=== PATIENT | female | born 1985 | race Caucasian/White ===

== ENCOUNTER 2017-08-16 07:10 | Day surgery (SDC) | payer OTHER ==
[2017-08-09 12:47] VITALS: BMI 25.7
[~2017-08-16 07:10] MED LIST: LACTATED RINGERS 1,000 ML IV SCH; LIDOCAINE 1% 20 ML VIAL (10MG/ML) FOR IV START INTRADERMA PRN
[2017-08-16 07:27] VITALS: RESP 16; TEMP 97.8
[2017-08-16] MEDS ORDERED: LACTATED RINGERS 1,000 ML IV ONE (07:27)
[2017-08-16] MEDS ORDERED: LIDOCAINE 1% INJ 10MG/ML (20 ML MDV) ONE (07:33)
[2017-08-16] MEDS ORDERED: fentaNYL (PF) 50 MCG/ML 2 ML AMP ONE (07:33)
[2017-08-16] MEDS ORDERED: PROPOFOL 10 MG/ML 20 ML VIAL IV ONE (07:33)
--- NOTE | 2017-08-16 07:47 | P.OP ---
Date of Procedure: 08/16/17 Preoperative Diagnosis: Epigastric and right subcostal pain Ultrasound shows no gallstones CCK HIDA ejection fraction of 86% Postoperative Diagnosis: Same Procedure(s) Performed: Esophagogastroduodenoscopy with biopsy Implants: NA Anesthesia: MAC Surgeon: Priya José Pathology: other Condition: stable Disposition: PACU Indications for Procedure: 31 years old female presents with epigastric and right upper quadrant pain. Ultrasound and CCK HIDA did not show gallstones or biliary dyskinesia. Informed consent obtained and patient elected to undergo EGD with possible biopsy. Operative Findings: Normal EGD GE junction located at 40 cm from the incisors Description of Procedure: A timeout was performed to verify the correct patient and correct procedure. Patient was on continuous vitals and pulse ox monitoring throughout the procedure. She was placed in lateral decubitus position and an oral bite block was inserted. A well-lubricated Olympus upper endoscope was passed orally. The esophagus was intubated without difficulty. The vocal cords were visualised and protected at all times. The endoscope was passed beyond the pylorus into the first and second portion of the duodenum. No abnormality was noted in the duodenum mucosa. Two random biopsies were taken from the gastric antrum using cold biopsy forceps. The scope was then retroflexed. No hiatal hernia No mass, active ulcer or bleeding stigmata noted within the gastric lumen. The GE junction is measured at 40 cm from the incisors . No evidence of reflux esophagitis. Bx taken from GE junction using cold biopsy forceps. The endoscope was gradually withdrawn. No abnormality identified in the esophagus. Patient tolerated the procedure well and was taken to post anesthesia care unit in stable condition. Final Pathologic Diagnosis A. GASTRIC ANTRUM, BIOPSY: MILD CHRONIC GASTRITIS. IMMUNOPEROXIDASE STAIN NEGATIVE FOR HELICOBACTER PYLORI ORGANISMS (CONTROLS APPROPRIATE). B. GASTROESOPHAGEAL JUNCTION, BIOPSY: MATURE SQUAMOGLANDULAR MUCOSA SHOWING CHRONIC ESOPHAGITIS WITH SCATTERED INTRAMUCOSAL EOSINOPHILS AND CHRONIC INFLAMMATION OF THE GLANDULAR COMPONENT. NEGATIVE FOR INTESTINAL METAPLASIA
[2017-08-16 08:20] VITALS: BP 104/71; PULSE 59
== END 2017-08-16 08:35 | disposition home or self-care (01) ==
LOC: ORWHC2ENDO 07:10
PROVIDERS: ATTEND Surgery
DX: K29.50 Unspecified chronic gastritis without bleeding (principal); K20.0 Eosinophilic esophagitis; J45.909 Unspecified asthma, uncomplicated; F17.200 Nicotine dependence, unspecified, uncomplicated; Z88.8 Allergy status to other drugs, medicaments and biological substances; Z97.5 Presence of (intrauterine) contraceptive device; Z83.3 Family history of diabetes mellitus; Z82.49 Family history of ischemic heart disease and other diseases of the circulatory system
CPT/HCPCS: 43239; 81025; J2001; J3010; J2704; 88305; 88342

== ENCOUNTER → 2021-06-06 | Outpatient (CLI) | payer MEDICAID | END | disposition home or self-care (01) | LOC: LABWHC1 14:45 | PROVIDERS: ATTEND Family Medicine | DX: Z20.822 Contact with and (suspected) exposure to COVID-19 (principal) | CPT/HCPCS: 87635 ==

== ENCOUNTER → 2021-06-07 | Outpatient (CLI) | payer MEDICAID | END | disposition home or self-care (01) | LOC: LABWHC1 14:45 | PROVIDERS: ATTEND Emergency Medicine | DX: Z03.818 Encounter for observation for suspected exposure to other biological agents ruled out (principal); Z20.822 Contact with and (suspected) exposure to COVID-19 | CPT/HCPCS: 87635; C9803 ==

== ENCOUNTER 2021-09-14 10:48 | Day surgery (SDC) | payer MEDICAID ==
[2021-09-12 14:52] VITALS: BMI 29.1
--- NOTE | 2021-09-14 09:23 | P.HPOB ---
History of Present Illness H&P Date: 09/14/21 Chief Complaint: family planning 35 year old presents for laparoscopic tubal ligation and removal of IUD. Review of Systems All systems: negative Constitutional: Denies chills, Denies fever Eyes: denies blurred vision, denies pain Ears, nose, mouth and throat: Denies headache, Denies sore throat Cardiovascular: Denies chest pain, Denies shortness of breath Respiratory: Denies cough Gastrointestinal: Denies abdominal pain, Denies diarrhea, Denies nausea, Denies vomiting Genitourinary: Denies dysuria, Denies hematuria Musculoskeletal: Denies myalgias Integumentary: Denies pruritus, Denies rash Neurological: Denies numbness, Denies weakness Psychiatric: Denies anxiety, Denies depression Endocrine: Denies fatigue, Denies weight change Past Medical History Past Medical History: Asthma Additional Past Medical History / Comment(s): HX GALLBLADDER ISSUES, SEASONAL ALLERGIES, PVC's, "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 Past Psychological History: Anxiety Smoking Status: Former smoker Past Alcohol Use History: None Reported Additional Past Alcohol Use History / Comment(s): SMOKED 1/4 PPD FOR APPROX 9 YRS, QUIT 5 YRS AGO. Past Drug Use History: None Reported - Past Family History Father Family Medical History: Deep Vein Thrombosis (DVT) Medications and Allergies Home Medications Medication Instructions Recorded Confirmed Type ALPRAZolam [Xanax] 0.5 mg PO QAM 09/12/21 09/12/21 History Cetirizine HCl [Zyrtec] 10 mg PO QAM 09/12/21 09/12/21 History Digoxin [Lanoxin] 125 mcg PO QAM 09/12/21 09/12/21 History Flovent (Unknown Dose) 2 puff INHALATION BID 09/12/21 09/12/21 History Ibuprofen [Motrin] 800 mg PO Q8H PRN 09/12/21 09/12/21 History Montelukast Sodium [Singulair] 10 mg PO HS 09/12/21 09/12/21 History Allergies Allergy/AdvReac Type Severity Reaction Status Date / Time bupropion [From Wellbutrin] Allergy Anaphylaxis Verified 09/12/21 14:41 carrot Allergy Anaphylaxis Verified 09/12/21 14:41 metoclopramide [From Reglan] Allergy Rash/Hives Verified 09/12/21 14:41 Exam Osteopathic Statement: *. No significant issues noted on an osteopathic structural exam other than those noted in the History and Physical/Consult. HEart: RRR Lungs: CTAB Abdomen: soft, nontender Extremeties: neg delmy's Assessment and Plan (1) Family planning Status: Acute Code(s): Z30.09 - ENCOUNTER FOR OTH GENERAL CNSL AND ADVICE ON CONTRACEPTION SNOMED Code(s): 108732004 (2) IUD (intrauterine device) in place Status: Acute Code(s): Z97.5 - PRESENCE OF (INTRAUTERINE) CONTRACEPTIVE DEVICE SNOMED Code(s): 119400123 Plan: 1. laparoscopic tubal ligation and removal of IUD
[~2021-09-14 10:48] MED LIST changes: +DEXAMETHASONE SOD PHOSPHATE 4 MG/ML 1 ML VIAL IV ONE; +LIDOCAINE 1% (10MG/ML) FOR IV START INTRADERMA PRN; -LIDOCAINE 1% 20 ML VIAL (10MG/ML) FOR IV START INTRADERMA PRN; +MIDAZOLAM 2 MG/2 ML VIAL IV PRN; +ONDANSETRON 4 MG/2 ML VIAL IVP ONE; +Pre Op ABX Message 1 EACH MISC MISCELLANE ONE
[2021-09-14] MEDS ORDERED: SUCCINYLCHOLINE CHLORIDE 100 MG/5 ML SYR IV ONE (12:10)
[2021-09-14] MEDS ORDERED: .fentaNYL (PF) 50 MCG/ML 2 ML AMP ONE (12:10)
[2021-09-14] MEDS ORDERED: ROCURONIUM 10 MG/ML (5 ML VIAL) IV ONE (12:10)
[2021-09-14] MEDS ORDERED: PROPOFOL 10 MG/ML 20 ML VIAL IV ONE (12:10)
[2021-09-14] MEDS ORDERED: GLYCOPYRROLATE 0.2 MG/ML 2 ML VIAL ONE (12:10)
[2021-09-14] MEDS ORDERED: NEOSTIGMINE 1 MG/ML 10 ML VIAL ONE (12:10)
[2021-09-14] MEDS ORDERED: BUPIVACAINE (PF) 0.25% 30 ML VIAL SQ ONE ×2 (12:37)
--- NOTE | 2021-09-14 12:56 | P.OP ---
Date of Procedure: 09/14/21 Preoperative Diagnosis: 1. Family planning 2. IUD in place Postoperative Diagnosis: 1. Family planning 2. IUD in place Procedure(s) Performed: Laparoscopic tubal ligation and removal of IUD Anesthesia: KRISTI Surgeon: Elida Jessica Estimated Blood Loss (ml): 5 IV fluids (ml): 200 Urine output (ml): 45 Pathology: none sent Condition: stable Disposition: PACU Operative Findings: Normal uterus, tubes, ovaries. There was some scar tissue from fallopian tubes around both ovaries. Description of Procedure: Patient was taken to the operating room where general anesthesia was obtained without difficulty. She was prepped and draped in normal sterile fashion in the dorsal lithotomy position, legs placed in the Arvind stirrups. Bladder drained of all urine. Cullen speculum placed in the vagina and the anterior lip the cervix was grasped with single-tooth tenaculum. The IUD strings were grasped with a ring forcep and IUD was easily removed. The uterus is sounded to 9 cm and the kroner manipulator was placed. Attention was then turned to the abdomen and gloves were changed. A 10 mm infraumbilical incision was made the scalpel and 10 mm optical trocar was placed under direct visualization. A 5 mm suprapubic Incision was made and a 5 mm optical trocar was placed under direct visualization. Survey of the pelvis revealed normal uterus tubes and ovaries. The left fallopian tube was grasped with a Kleppinger and fulgurated 2-3 cm on this side in the ampullar portion. The right fallopian tube was grasped with a Kleppinger and fulgurated 2-3 cm in the ampullar portion. All instruments were then removed from the abdomen and vagina. The 10 mm infraumbilical incision was closed with 0 Vicryl and the fascial layer and then 4-0 Vicryl in a subcuticular fashion. The 5 mm incision was closed with 4-0 Vicryl in a subcuticular fashion. Patient tolerated procedure well, sponge and instrument counts correct 2 and she was taken to recovery room in stable condition.
[2021-09-14 13:03] VITALS: TEMP 97
[2021-09-14] MEDS: HYDROmorphone 0.5 MG/0.5 ML SYRINGE IVP PRN ×2 (13:16→13:34)
[2021-09-14] MEDS ORDERED: ONDANSETRON 4 MG/2 ML VIAL ONE (14:21)
[2021-09-14 14:23] VITALS: RESP 16
[2021-09-14 15:11] VITALS: BP 97/55; PULSE 47
== END 2021-09-14 16:03 | disposition home or self-care (01) ==
LOC: OR 10:48
PROVIDERS: ATTEND Obstetrics & Gynecology
DX: Z30.2 Encounter for sterilization (principal); J45.909 Unspecified asthma, uncomplicated; Z30.432 Encounter for removal of intrauterine contraceptive device; I49.3 Ventricular premature depolarization; Z87.891 Personal history of nicotine dependence; F41.9 Anxiety disorder, unspecified; Z82.49 Family history of ischemic heart disease and other diseases of the circulatory system; Z79.899 Other long term (current) drug therapy; Z88.8 Allergy status to other drugs, medicaments and biological substances; Z91.018 Allergy to other foods
CPT/HCPCS: 81025; 58670; J2250; J1100; J2710; J2405; J3010; J0330; J2704; J1170

== ENCOUNTER → 2021-10-23 | Outpatient (CLI) | payer MEDICAID ==
--- NOTE | 2021-10-24 07:49 | CT ---
EXAMINATION TYPE: CT chest wo con DATE OF EXAM: 10/23/2021 COMPARISON: None HISTORY: persistant pneumonia CT DLP: 235.[address] of the chest was performed with lung and mediastinal window settings submitted. The la ck of contrast limits evaluation of the vascular, mediastinal and parenchymal structures including th e upper abdomen. LUNGS: The lungs are clear and free of infiltrate. No atelectasis. No pulmonary nodule or mass is de tected. No pleural effusion. No CT evidence of interstitial lung disease. MEDIASTINUM/JACKIE: Thoracic aorta is of normal caliber with limited evaluation given lack of contrast . The heart is not enlarged. No evidence for mediastinal mass. No lymph nodes greater than 1cm. UPPER ABDOMEN: No significant abnormality is seen. OTHER: No significant other abnormality. IMPRESSION: 1. No significant abnormality seen.
== END | disposition home or self-care (01) ==
LOC: RADCTMAIN 18:01
PROVIDERS: ATTEND Internal Medicine Pulmonary Disease
DX: J45.50 Severe persistent asthma, uncomplicated (principal)
CPT/HCPCS: 71250

== ENCOUNTER → 2022-05-23 | Outpatient (CLI) | payer OTHER ==
--- NOTE | 2022-05-24 09:34 | MM ---
Reason for Exam: Screening (asymptomatic). Patient History: Menarche at age 14. First Full-Term at age 21. Premenopausal. Hormonal Contraceptives, from age 18 until age 35. Maternal grandmother had breast cancer, age 38. Maternal grandmother had ovarian cancer, age 40. Maternal aunt had breast cancer, age 40. Cousin had breast cancer, age 42. Maternal aunt had breast cancer, age 40. Cousin had breast cancer, age 45. Maternal aunt had breast cancer, age 38. Maternal aunt had breast cancer, age 37. Cousin had breast cancer, age 44. Last menstrual period: 05/12/2022 Risk Values: Mackenzie 5 year model risk: 0.3%. NCI Lifetime model risk: 9.2%. Tissue Density: The breast tissue is heterogeneously dense. This may lower the sensitivity of mammography. Findings: Analyzed By CAD. There is a single benign-appearing round calcification in the right breast upper outer quadrant. There is no suspicious group of microcalcifications or new suspicious mass in either breast. Overall Assessment: Benign, BI-RAD 2 Management: Screening Mammogram of both breasts at age 41. A clinical breast exam by your physician is recommended on an annual basis and results should be correlated with mammographic findings. Electronically signed and approved by: Don Cordon M.D.
== END | disposition home or self-care (01) ==
LOC: RADMAMWWP 15:50
PROVIDERS: ATTEND Obstetrics & Gynecology
DX: Z12.31 Encounter for screening mammogram for malignant neoplasm of breast (principal); Z80.3 Family history of malignant neoplasm of breast
CPT/HCPCS: 77063; 77067

== ENCOUNTER → 2024-05-15 | Outpatient (CLI) | payer BC ==
--- NOTE | 2024-06-08 15:24 | MR ---
Site ID synapse default Patient Edie Bae E ID [id number] Age/Gender: 38Y, F Order # N/A Procedure MR lumbar wo Date 05/15/2024 5:55:26 PM EXAMINATION TYPE: MR lumbar spine wo con DATE OF EXAM: 05/22/2024 COMPARISON: None HISTORY: Left foot and lower back pain TECHNIQUE: Multiplanar, multisequence images of the lumbar spine were acquired without IV contrast. FINDINGS: The lumbar vertebral bodies do have preserved heights and alignment. No significant disc desiccation. The conus medullaris and the distal spinal cord do appear unremarkable with regards to their signal intensity and morphology. L1-L2: No significant disc pathology is identified. The spinal canal and neural foramen are patent. L2-L3: No significant disc pathology is identified. The spinal canal and neural foramen are patent. L3-L4: No significant disc pathology is identified. The spinal canal and neural foramen are patent. L4-L5: No significant disc pathology is identified. The spinal canal and neural foramen are patent L5-S1: The intervertebral disc appears round on its contour posteriorly without significant mass eff ect upon the thecal sac. The neural canals remain patent. Other significant findings: None. IMPRESSION: Unremarkable MRI lumbar spine.
== END | disposition home or self-care (01) ==
LOC: RADMRIMAIN 18:45
PROVIDERS: ATTEND Physical Medicine & Rehabilitation Brain Injury Medicine
DX: M54.16 Radiculopathy, lumbar region (principal)
CPT/HCPCS: 72148

== ENCOUNTER → 2024-06-23 | Outpatient (CLI) | payer BC ==
--- NOTE | 2024-06-23 16:25 | XR ---
EXAMINATION TYPE: XR cervical spine comp DATE OF EXAM: 06/23/2024 CLINICAL HISTORY: pain COMPARISON: NONE TECHNIQUE: Frontal, lateral, oblique, swimmers, and open mouth view of the cervical spine are obtaine d. FINDINGS: The cervical spine is visualized in its entirety from C1 thru the top of T1 level. It is s atisfactory in alignment without evidence of acute fracture or dislocation. The pre-vertebral soft t issue appears within normal limits. Disc spaces are well preserved. The C1-C2 articulation is unremar kable on the open mouth view. The oblique images are within normal limits. IMPRESSION: No acute fracture or dislocation is seen in the cervical spine.ICD 10 NO FRACTURE, INITI AL EVALUATION [facility], , 06/23/2024 4:23 PM
== END | disposition home or self-care (01) ==
LOC: RADXRMAIN 15:47
PROVIDERS: ATTEND Family Medicine
DX: M54.2 Cervicalgia (principal)
CPT/HCPCS: 72050

== ENCOUNTER → 2024-07-30 | Outpatient (CLI) | payer BC ==
--- NOTE | 2024-07-30 13:56 | MM ---
Reason for Exam: Clinical finding. Last mammogram was performed 2 year(s) and 2 month(s) ago. Indicated Problems: Lump or thickening of the right side for 4 Day(s). Patient History: Menarche at age 14. First Full-Term at age 21. Premenopausal. Hormonal Contraceptives, from age 18 until age 35. Maternal grandmother had breast cancer, age 38. Maternal grandmother had ovarian cancer, age 40. Maternal aunt had breast cancer, age 40. Cousin had breast cancer, age 42. Maternal aunt had breast cancer, age 40. Cousin had breast cancer, age 45. Maternal aunt had breast cancer, age 38. Maternal aunt had breast cancer, age 37. Cousin had breast cancer, age 44. Last menstrual period: 07/26/2024 Risk Values: Mackenzie 5 year model risk: 0.4%. NCI Lifetime model risk: 9.2%. Prior Study Comparison: 05/23/2022 Bilateral MG 3D screening mammo w/cad, [facility]. Tissue Density: The breasts are heterogeneously dense, which may obscure small masses. Findings: Analyzed By CAD. 3.5 cm high density irregular mass at the upper outer quadrant right breast anterior to middle depth. Findings highly concerning. Otherwise, no other discrete abnormality seen. Overall Assessment: Incomplete: need additional imaging evaluation, BI-RAD 0 Management: Diagnostic Breast Ultrasound of the right breast. [facility], , 07/30/2024 1:53 PM. Electronically signed and approved by: Rachel Busby M.D. Radiologist
--- NOTE | 2024-07-30 14:30 | USB ---
Reason for Exam: Clinical finding. Patient History: Menarche at age 14. First Full-Term at age 21. Premenopausal. Hormonal Contraceptives, from age 18 until age 35. Maternal grandmother had breast cancer, age 38. Maternal grandmother had ovarian cancer, age 40. Maternal aunt had breast cancer, age 40. Cousin had breast cancer, age 42. Maternal aunt had breast cancer, age 40. Cousin had breast cancer, age 45. Maternal aunt had breast cancer, age 38. Maternal aunt had breast cancer, age 37. Cousin had breast cancer, age 44. Risk Values: Mackenzie 5 year model risk: 0.4%. NCI Lifetime model risk: 9.2%. Technique: Method: Whole Breast Handheld. Prior Study Comparison: 05/23/2022 Bilateral MG 3D screening mammo w/cad, [facility]. Findings: The whole breast of the right breast, the axilla of the right breast and the retroareolar of the right breast were scanned. A complete US of all four quadrants of the breast common axilla, and retro-areolar region were reviewed. There is a large irregular hypoechoic mass with angular margins measuring 3.7 x 4.0 x 3.2 cm at the 10:00 position, 4 cm from the nipple, corresponding to the patient's palpable site. Small amount of internal vascularity is noted. No other solid or cystic lesions. Nonenlarged, benign-appearing couple lymph nodes in the right axilla. Overall Assessment: Highly suggestive of malignancy, BI-RAD 5 Management: Ultrasound Core Biopsy of the right breast. Results were given to the patient verbally at the time of exam. [facility], , 07/30/2024 2:27 PM. Electronically signed and approved by: Rachel Busby M.D. Radiologist
== END | disposition home or self-care (01) ==
LOC: RADMAMWWP 13:19
PROVIDERS: ATTEND Obstetrics & Gynecology
CPT/HCPCS: 77062; 77066

== ENCOUNTER → 2024-08-14 | Outpatient (CLI) | payer BC ==
[2024-08-14 07:50] VITALS: BP 126/90; PULSE 89; RESP 16; TEMP 98.1
--- NOTE | 2024-08-14 08:13 | P.GSCN ---
History of Present Illness Consult date: 08/14/24 Reason for Consult: right breast invasive ductal carcinoma Requesting physician: Elida Jessica History of present illness: Edie is a 38-year-old female seen in consultation for Dr. Jessica, and Dr. Lockett regarding a biopsy-proven right breast invasive ductal carcinoma. This is ER/OR negative and HER2 is pending. She underwent a bilateral mammogram on 07-30-2024. There was a 3.5 cm high density irregular mass at the upper outer quadrant of the right breast. An ultrasound was requested. No lesions of concern were seen in the left breast. An ultrasound was performed on 07-30-2024. This confirmed a 3.7 x 4 x 3.2 cm lesion at the 10 o'clock position of the right breast which was highly suspicious. She subsequently underwent an ultrasound-guided core biopsy of the lesion on 08-07-2024. This was a grade 3 invasive ductal carcinoma ER/OR negative HER2 pending. She felt something in her breast in late June. It has not changed since she noted it. She had a bilateral mammogram performed in 05-23-2022 secondary to a strong family history and this was considered BI-RADS 2. She has never had any surgery on her breast. She has not had any trauma or infection in her breast. She is not complaining of any nipple discharge or skin changes. She is having normal menstrual periods and does not have any changes in her breast at the time of her menstrual period. Caffeine: 1 coke/day nicotine: none now chocolate: occasional BCP: tubaligation in 2020, used from 18 to 35 hormones: none Family History: maternal grandmother: breast and ovarian cancer 3 maternal cousin between 37 to 45 with breast cancer one of breast cancer Hormonal History: menarche: 14 breast fed: yes, age at first : 22 periods regular last July 26, last about 3 days Surgical History: tubaligation Medical Hitory: asthma Social History: nicotine: 12 years / PPD stopped about 7 years ago alcoholL: none drugs: none Review of Systems - Constitutional Denies fever, Denies weight loss - EENT Eyes: denies blurred vision Ears: bilateral: tinnitus, deny: decreased hearing Ears, nose, mouth and throat: Denies dysphagia - Breasts bilateral: as per HPI - Cardiovascular Cardiovascular Comment(s): asthma - Respiratory Reports as per HPI - Gastrointestinal Reports as per HPI - Genitourinary Genitourinary: Denies dysuria, Denies hematuria Menstruation: Reports period normal - Musculoskeletal Reports myalgias - Integumentary Integumentary Comment(s): 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 Galvan Denies rash, Denies unusual bruising - Neurological Denies headaches, Denies syncope - Psychiatric Reports anxiety - Endocrine Reports fatigue, Reports weight change - Hematologic/Lymphatic Reports easy bruising - Allergic/Immunologic Reports seasonal allergies Past Medical History Past Medical History: Asthma Additional Past Medical History / Comment(s): HAS BEEN HAVING GALLBLADDER ISSUES. SEASONAL ALLERGIES History of Any Multi-Drug Resistant Organisms: None Reported Past Surgical History: Tubal Ligation Past Anesthesia/Blood Transfusion Reactions: No Reported Reaction Additional Past Anesthesia/Blood Transfusion Reaction / Comm: NO PRIOR SX HX Past Psychological History: Anxiety Smoking Status: Former smoker Past Alcohol Use History: None Reported Additional Past Alcohol Use History / Comment(s): SMOKES 1/4 PPD SINCE AGE 21, quit 2015? Past Drug Use History: None Reported - Past Family History Father Family Medical History: Deep Vein Thrombosis (DVT) Medications and Allergies Home Medications Medication Instructions Recorded Confirmed Type ALPRAZolam [Xanax] 0.5 mg PO QAM 09/12/21 07/31/24 History Cetirizine HCl [Zyrtec] 10 mg PO QAM 09/12/21 07/31/24 History Ibuprofen [Motrin] 800 mg PO Q8H PRN 09/12/21 07/31/24 History Montelukast Sodium [Singulair] 10 mg PO HS 09/12/21 07/31/24 History Fluticasone/Umeclidin/Vilanter 1 puff INHALATION DAILY 07/31/24 07/31/24 History [Trelegy Ellipta 200-62.5-25] Multivitamin [Multivitamins Adult 1 each PO DAILY 07/31/24 07/31/24 History Gummies] Pregabalin [Lyrica] 75 mg PO HS 07/31/24 07/31/24 History Allergies Allergy/AdvReac Type Severity Reaction Status Date / Time bupropion [From Wellbutrin] Allergy Anaphylaxis Verified 08/14/24 07:47 carrot Allergy Anaphylaxis Verified 08/14/24 07:47 metoclopramide [From Reglan] Allergy Rash/Hives Verified 08/14/24 07:47 Surgical - Exam Vital Signs Temp Pulse Resp BP Pulse Ox 98.1 F 89 16 126/90 98 08/14/24 07:48 08/14/24 07:48 08/14/24 07:48 08/14/24 07:48 08/14/24 07:48 - General moderate distress - Eyes normal ocular movement - Neck trachea midline - Respiratory normal respiratory effort, clear to auscultation - Cardiovascular Rhythm: regular Heart Sounds: normal: S1, S2 - Abdomen Abdomen: soft, non tender, no guarding, no rigid, no rebound - Integumentary normal turgor - Musculoskeletal normal gait - Psychiatric oriented to time, oriented to person, oriented to place, speech is normal, memory intact Breast Exam: BRA: 36D Inspection: bilateral grade 2 ptosis Palpation: Right breast: Multi positional exam mass right breast upper outer quadrant approximately 4 x 5 cm in size Right axilla: No adenopathy of concern Left breast: Multi positional exam no dominant masses or nodules of concern Left axilla: No adenopathy of concern Results Mammogram and ultrasound personally reviewed and interpreted Assessment and Plan Assessment: Impression: Right breast invasive ductal carcinoma grade 3 ER/OR negative HER2 pending Plan: Presentation of case at tumor board CC: Dr. Jessica, Dr. Lockett
== END ==
LOC: WWCWWP 07:31
PROVIDERS: ATTEND Surgery
DX: C50.411 Malignant neoplasm of upper-outer quadrant of right female breast (principal); Z17.1 Estrogen receptor negative status [ER-]; Z17.22 Progesterone receptor negative status; Z80.3 Family history of malignant neoplasm of breast; Z87.891 Personal history of nicotine dependence; Z91.018 Allergy to other foods; Z88.8 Allergy status to other drugs, medicaments and biological substances

== ENCOUNTER → 2024-08-21 | Outpatient (CLI) | payer BC ==
--- NOTE | 2024-08-22 09:43 | CA ---
Transthoracic Echo Report Name: Edie Bae Age: 38 Gender: F : 1985 Exam Date: 08/21/2024 14:36 Exam Location: [facility] Ht (in): 65 Wt (lb): 207 Ordering Physician: Logan Galvan MD Attending/Referring Phys: Upholstery Auto Trimmer Rola Quevedo RDCS Procedure CPT: Indications: C50.411BREAST CANCER, RIGHT;Z01.818 CHEMO Cardiac Hx: Technical Quality: Fair Contrast 1: Total Dose (mL): Contrast 2: Total Dose (mL): MEASUREMENTS (Male / Female) Normal Values 2D ECHO LV Diastolic Diameter PLAX 5.2 cm 4.2 - 5.9 / 3.9 - 5.3 cm LV Systolic Diameter PLAX 3.1 cm IVS Diastolic Thickness 0.9 cm 0.6 - 1.0 / 0.6 - 0.9 cm LVPW Diastolic Thickness 0.7 cm 0.6 - 1.0 / 0.6 - 0.9 cm LV Relative Wall Thickness 0.3 RV Internal Dim ED PLAX 3.3 cm LVOT Diameter 1.8 cm LV Diastolic Volume MOD BP 82.2 cm??? 67 - 155 / 56 - 104 cm??? LV Systolic Volume MOD BP 33.1 cm??? 22 - 58 / 19 - 49 cm??? LV Ejection Fraction MOD BP 59.7 % >= 55 % LV Cardiac Index MOD BP 1578.1 cm???/min???m??? LV Diastolic Volume MOD 4C 73.2 cm??? LV Systolic Volume MOD 4C 32.1 cm??? LV Ejection Fraction MOD 4C 56.2 % LV Cardiac Index MOD 4C 1323.8 cm???/min???m??? LV Diastolic Length 4C 8.0 cm LV Systolic Length 4C 6.5 cm LV Diastolic Volume MOD 2C 91.9 cm??? LV Systolic Volume MOD 2C 33.3 cm??? LV Ejection Fraction MOD 2C 63.8 % LV Cardiac Index MOD 2C 1884.7 cm???/min???m??? LV Diastolic Length 2C 8.0 cm LV Systolic Length 2C 6.8 cm LA Volume 37.8 cm??? 18 - 58 / 22 - 52 cm??? LA Volume Index 17.9 cm???/m??? 16 - 28 cm???/m??? M-MODE Aortic Root Diameter MM 3.1 cm LA Systolic Diameter MM 3.5 cm LA Ao Ratio MM 1.1 AV Cusp Separation MM 1.7 cm DOPPLER AV Peak Velocity 117.5 cm/s AV Peak Gradient 5.5 mmHg AV Mean Velocity 84.3 cm/s AV Mean Gradient 3.1 mmHg AV Velocity Time Integral 27.3 cm LVOT Peak Velocity 85.8 cm/s LVOT Peak Gradient 2.9 mmHg LVOT Velocity Time Integral 18.8 cm LVOT Stroke Volume 50.0 cm??? LVOT Stroke Volume Index 24.9 ml/m??? LVOT Cardiac Index 1608.1 cm???/min???m??? AV Area Cont Eq vti 1.8 cm??? AV Area Cont Eq pk 1.9 cm??? MV Area PHT 3.6 cm??? Mitral E Point Velocity 74.1 cm/s Mitral A Point Velocity 43.8 cm/s Mitral E to A Ratio 1.7 MV Deceleration Time 209.3 ms MV E' Velocity 8.6 cm/s Mitral E to MV E' Ratio 8.6 FINDINGS Left Ventricle Normal Left ventricular size, wall thickness, systolic function with no obvious regional wall motion abnormalities. Normal Left ventricular diastolic filling pattern. Left ventricular ejection fraction is estimated at 55-60 %. Normal left heart strain. GLPD avg is -18% Right Ventricle Normal right ventricular size and function. Right ventricular systolic pressure within normal limits. Right Atrium Normal right atrial size. Left Atrium Normal left atrial size. Mitral Valve Structurally normal mitral valve. Mild mitral regurgitation. Aortic Valve Trileaflet aortic valve. No aortic valve stenosis or regurgitation. Tricuspid Valve Structurally normal tricuspid valve. Mild tricuspid regurgitation. Pulmonic Valve Structurally normal pulmonic valve. Pericardium No pericardial effusion. Aorta Normal size aortic root and proximal ascending aorta. CONCLUSIONS LVEF 55% Normal LV cavity size and wall thickness No obvious regional wall motion abnormality. Average global longitudinal strain is -18. (Normal is -20) Mild MR and mild TR Normal RV size and systolic function. Normal RVSP Previewed by: Dr Orestes Rich (Electronically Signed) Final Date: 22 August 2024 09:42
== END | disposition home or self-care (01) ==
LOC: RADECHMAIN 14:16
PROVIDERS: ATTEND Internal Medicine Hematology & Oncology
DX: Z01.818 Encounter for other preprocedural examination (principal); C50.411 Malignant neoplasm of upper-outer quadrant of right female breast; I07.1 Rheumatic tricuspid insufficiency; I34.0 Nonrheumatic mitral (valve) insufficiency
CPT/HCPCS: 93306

== ENCOUNTER → 2024-08-21 | Outpatient (CLI) | payer BC ==
--- NOTE | 2024-08-21 20:50 | MR ---
INDICATION: Patient age:Female; 38 years old; Reason for study: C50.411MALIG NEOPLM OF UPPER-OUTER QUADRANT OF RIG; PHH. COMPARISON: None. TECHNIQUE: Multi planar, multi sequence imaging was performed through the brain. The patient was then given 9 cc of Gadobutrol intravenously and multi planar, T1 fat-saturation images were obtained. FINDINGS: The iqbal-white junctions, ventricular system, basal cisterns appear unremarkable. Age-appropriate cer ebral parenchymal volume. Diffusion-weighted imaging shows no evidence of restricted diffusion to sug gest acute/subacute infarct. Intracranial arterial flow voids are maintained. Midline structures show no abnormality. No FLAIR signal abnormalities. The susceptibility weighted images do not reveal any evidence for micro-hemorrhage. After administration of gadolinium, no abnormal enhancement is seen. The bone marrow signal is within normal limits. The paranasal sinuses and globes are unremarkable. IMPRESSION: No evidence of intracranial mass, acute/subacute infarct, or abnormal enhancement to suggest metastas is. [facility], , 08/21/2024 8:47 PM
== END | disposition home or self-care (01) ==
LOC: RADMRIMAIN 20:45
PROVIDERS: ATTEND Internal Medicine Hematology & Oncology
DX: Z01.818 Encounter for other preprocedural examination (principal); C50.411 Malignant neoplasm of upper-outer quadrant of right female breast
CPT/HCPCS: 70553; A9585

== ENCOUNTER → 2024-09-03 | Outpatient (CLI) | payer BC ==
--- NOTE | 2024-09-03 10:14 | P.PN ---
Subjective Progress Note Date: 09/03/24 History of Present Illness Consult date: 09-03-24 Reason for Consult: right breast invasive ductal carcinoma [id number] Requesting physician: Elida Jessica History of present illness: Edie is a 38-year-old female seen in consultation for Dr. Jessica, and Dr. Lockett regarding a biopsy-proven right breast invasive ductal carcinoma. This is ER/NH negative and HER2 is negative. She underwent a bilateral mammogram on 07-30-2024. There was a 3.5 cm high density irregular mass at the upper outer quadrant of the right breast. An ultrasound was requested. No lesions of co ncern were seen in the left breast. An ultrasound was performed on 07-30-2024. This confirmed a 3.7 x 4 x 3.2 cm lesion at the 10 o'clock position of the right breast which was highly suspicious. She subsequently underwent an ultrasound- guided core biopsy of the lesion on 08-07-2024. This was a grade 3 invasive ductal carcinoma ER/NH negative HER2 negative. She felt something in her breast in late June. It has not changed since she noted it. She had a bilateral mammogram performed in 05-23-2022 secondary to a strong family history and this was considered BI-RADS 2. She has never had any surgery on her breast. She has not had any trauma or infection in her breast. She is not complaining of any nipple discharge or skin changes. She is having normal menstrual periods and does not have any changes in her breast at the time of her menstrual period. Patient's case presented at tumor board on 08-25-2024. She is being seen by Dr. Galvan. She will have neoadjuvant chemotherapy. A PET scan has been done at [facility] results are not yet available. She will see him next week for those results and possible being set up for chemotherapy at that time. A brain MRI was done on 08-21-2024 did which did not reveal any brain mets. The patient has been called and this information has been discussed with her. I will be seeing her next week as well. She had an echo done results pending She will discuss with Dr. Galvan tomorrow about port placement Since she was seen last on 08-14-2024 the lesion in the breast has increased in size. She does have appointment tomorrow with Dr. Galvan and the plan is for neoadjuvant chemotherapy. 2 maternal aunts breast cancer PET scan The patient has been counseled regarding genetic testing. follow up in two weeks 1 hour spent in counseling and treatment options. She was seen with her parents and boyfriend. All questions were answered. Caffeine: 1 coke/day nicotine: none now chocolate: occasional BCP: tubaligation in 2020, used from 18 to 35 hormones: none Family History: maternal grandmother: breast and ovarian cancer 3 maternal cousin between 37 to 45 with breast cancer one of breast cancer Hormonal History: menarche: 14 breast fed: yes, age at first : 22 periods regular last July 26, last about 3 days Surgical History: tubaligation Medical Hitory: asthma Social History: nicotine: 12 years 1/4 PPD stopped about 7 years ago alcoholL: none drugs: none Review of Systems - Constitutional Denies fever, Denies weight loss - EENT Eyes: denies blurred vision Ears: bilateral: tinnitus, deny: decreased hearing Ears, nose, mouth and throat: Denies dysphagia - Breasts bilateral: as per HPI - Cardiovascular Cardiovascular Comment(s): asthma - Respiratory Reports as per HPI - Gastrointestinal Reports as per HPI - Genitourinary Genitourinary: Denies dysuria, Denies hematuria Menstruation: Reports period normal - Musculoskeletal Reports myalgias - Integumentary Integumentary Comment(s): 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 Galvan Denies rash, Denies unusual bruising - Neurological Denies headaches, Denies syncope - Psychiatric Reports anxiety - Endocrine Reports fatigue, Reports weight change - Hematologic/Lymphatic Reports easy bruising - Allergic/Immunologic Reports seasonal allergies Past Medical History Past Medical History: Asthma Additional Past Medical History / Comment(s): HAS BEEN HAVING GALLBLADDER ISSUES. SEASONAL ALLERGIES History of Any Multi-Drug Resistant Organisms: None Reported Past Surgical History: Tubal Ligation Past Anesthesia/Blood Transfusion Reactions: No Reported Reaction Additional Past Anesthesia/Blood Transfusion Reaction / Comm: NO PRIOR SX HX Past Psychological History: Anxiety Smoking Status: Former smoker Past Alcohol Use History: None Reported Additional Past Alcohol Use History / Comment(s): SMOKES 1/4 PPD SINCE AGE 21, quit 2015? Past Drug Use History: None Reported - Past Family History Father Family Medical History: Deep Vein Thrombosis (DVT) Medications and Allergies Home Medications Medication Instructions Recorded Confirmed Type ALPRAZolam [Xanax] 0.5 mg PO QAM 09/12/21 07/31/24 History Cetirizine HCl [Zyrtec] 10 mg PO QAM 09/12/21 07/31/24 History Ibuprofen [Motrin] 800 mg PO Q8H PRN 09/12/21 07/31/24 History Montelukast Sodium [Singulair] 10 mg PO HS 09/12/21 07/31/24 History Fluticasone/Umeclidin/Vilanter 1 puff INHALATION DAILY 07/31/24 07/31/24 History [Trelegy Ellipta 200-62.5-25] Multivitamin [Multivitamins Adult 1 each PO DAILY 07/31/24 07/31/24 History Gummies] Pregabalin [Lyrica] 75 mg PO HS 07/31/24 07/31/24 History Allergies Allergy/AdvReac Type Severity Reaction Status Date / Time bupropion [From Wellbutrin] Allergy Anaphylaxis Verified 08/14/24 07:47 carrot Allergy Anaphylaxis Verified 08/14/24 07:47 metoclopramide [From Reglan] Allergy Rash/Hives Verified 08/14/24 07:47 Objective - Constitutional General appearance: Present: cooperative - EENT Eyes: Present: EOMI - Neck Neck: Present: normal ROM - Respiratory Respiratory: bilateral: CTA - Cardiovascular Rhythm: regular Heart sounds: normal: S1, S2 - Integumentary Integumentary: Present: normal turgor - Musculoskeletal Musculoskeletal: Present: gait normal - Psychiatric Psychiatric: Present: A&O x's 3, appropriate affect, intact judgment & insight - Additional findings Additional findings: Breast Exam: BRA: 36D Inspection: bilateral grade 2 ptosis Palpation: Right breast: Multi positional exam mass right breast upper outer quadrant approximately 5.5 by 6 cm in size (increased in size) Right axilla: No adenopathy of concern Left breast: Multi positional exam no dominant masses or nodules of concern Left axilla: No adenopathy of concern Assessment and Plan Assessment: Assessment and Plan Assessment: Impression: Right breast invasive ductal carcinoma grade 3 ER/NH negative HER2 negative Plan: Presentation of case at tumor board/done 08-25-24 Appointment with plastic surgery in anticipation of bilateral mastectomy in the future/ Dr. Corona Follow-up here in 2 months Follow-up sooner any questions or concerns At this time PET scan is pending Genetic testing is pending CC: Dr. Jessica, Dr. Lockett
== END ==
LOC: WWCWWP 09:39
PROVIDERS: ATTEND Surgery
DX: C50.411 Malignant neoplasm of upper-outer quadrant of right female breast (principal); Z17.1 Estrogen receptor negative status [ER-]; Z17.22 Progesterone receptor negative status; Z80.3 Family history of malignant neoplasm of breast; Z87.891 Personal history of nicotine dependence; Z88.8 Allergy status to other drugs, medicaments and biological substances; Z91.018 Allergy to other foods

== ENCOUNTER 2024-09-21 08:54 | Day surgery (SDC) | payer BC ==
[2024-09-18 10:16] VITALS: BMI 34.6
[~2024-09-21 08:54] MED LIST changes: -DEXAMETHASONE SOD PHOSPHATE 4 MG/ML 1 ML VIAL IV ONE; +HYDROmorphone 0.5 MG/0.5 ML SYRINGE IVP PRN; -LACTATED RINGERS 1,000 ML IV SCH; -MIDAZOLAM 2 MG/2 ML VIAL IV PRN; -ONDANSETRON 4 MG/2 ML VIAL IVP ONE
[2024-09-21] MEDS: LACTATED RINGERS 1,000 ML IV SCH (09:30)
[2024-09-21] MEDS: IV FLUID CONTINUATION 1,000 ML IV ONE (09:30)
[2024-09-21] MEDS: ONDANSETRON 4 MG/2 ML VIAL IVP ONE (09:36)
[2024-09-21] MEDS: SCOPOLAMINE 1 MG/72 HR PATCH TRANSDERM STA (09:53)
[2024-09-21] MEDS: SCOPOLAMINE 1 MG/72 HR PATCH TRANSDERM ONE (09:53)
[2024-09-21] MEDS ORDERED: fentaNYL (PF) 50 MCG/ML 2 ML AMP ONE (10:18)
[2024-09-21] MEDS ORDERED: PROPOFOL 10 MG/ML 20 ML VIAL IV ONE (10:18)
[2024-09-21] MEDS ORDERED: LIDOCAINE 1% INJ 10MG/ML (20 ML MDV) ONE (10:18)
[2024-09-21] MEDS ORDERED: MIDAZOLAM 2 MG/2 ML VIAL ONE (10:18)
[2024-09-21] MEDS ORDERED: PHENYLEPHRINE-0.9% NACL SYG 1,000 MCG/10 ML SYRINGE ONE (10:18)
[2024-09-21] MEDS ORDERED: ceFAZolin 1 GM/50 ML BAG (PMX) ONE (10:18)
[2024-09-21] MEDS: SODIUM CHLORIDE 0.9% 100 ML with ceFAZolin 2,000 MG IV ONE (10:22)
[2024-09-21] MEDS: HEPARIN SODIUM,PORCINE 100 UNIT/ML 5 ML VIAL IV ONE (10:44)
[2024-09-21] MEDS: BUPIVACAINE (PF) 0.25% 30 ML VIAL SQ ONE ×2 (10:44)
--- NOTE | 2024-09-21 11:27 | P.OP ---
Date of Procedure: 09/21/24 Preoperative Diagnosis: Breast cancer Postoperative Diagnosis: Breast cancer Procedure(s) Performed: Mediport placement with fluoroscopy Anesthesia: MAC Surgeon: Caryl Pierson Pathology: none sent Condition: stable Disposition: same day Indications for Procedure: 38-year-old female with recent diagnosis of breast cancer. After consultation with her oncologist, plan is for chemotherapy induction. Risks, benefits and alternatives were provided for Mediport placement. Send was provided prior to attending the operating suite. Operative Findings: Appropriate flush and withdrawal from Mediport site Description of Procedure: Patient was brought to the operating suite and placed in supine position on the operating table. Sedation was provided by anesthesia and patient had LMA placement. She was then prepped and draped in regular sterile fashion. Right subclavian vein was accessed on first attempt using introducer needle. Guidewire was then placed and noted in appropriate position based on fluoroscopic guidance. Local anesthetic was administered and a pocket for Mediport was created. This was taken down to the prepectoralis fascia and inferiorly. Dilator sheath was then placed over the guidewire and catheter was placed. Catheter was then hooked to the port and locked into place. Appropriate flush and withdrawal was noted from the Mediport site. Fluoroscopic guidance was used to confirm no kinks in the catheter and appropriate positioning. The port was then secured to the prepectoralis fascia using 2-0 Prolene suture. Heparin lock was placed. Again appropriate flush and withdrawal was noted. Skin was then closed with 3-0 Vicryl and 4-0 Vicryl subcuticular suture. Sterile dressing was applied. The patient was taken to the postanesthesia care in stable condition.
[2024-09-21 11:32] VITALS: TEMP 97
--- NOTE | 2024-09-21 11:43 | FL ---
Intraoperative/procedural fluoroscopic services were provided for Port-A-Cath insertion. Total fluoro scopy time is 186.4 seconds with a total of 3 submitted images to PACS. Total DAP [id number] mGym2. Ple ase see the operative note for further details. [facility], , 09/21/2024 11:41 AM
--- NOTE | 2024-09-21 11:59 | XR ---
EXAMINATION TYPE: XR chest 1V confirm line [facility] [place] DATE OF EXAM: 09/21/2024 11:48 AM COMPARISON: Fluoroscopic images of the same date, CT chest 10/23/2021 TECHNIQUE: XR chest 1V confirm line [facility] [place] Portable AP radiograph of the chest. CLINICAL INDICATION:Female, 38 years old with history of Mediport Placement; FINDINGS: Lungs/Pleura: There is no evidence of pleural effusion, focal consolidation, or pneumothorax. Pulmonary vascularity: Unremarkable. Heart/mediastinum: Cardiomediastinal silhouette is unremarkable. Musculoskeletal: No acute osseous pathology. Other findings: None Lines/Tubes: [id number]-k-[id number] projecting over the right hemithorax with distal tip projecting over the mid superior v tessa cava. Right subclavian approach. IMPRESSION: Fzjcgf-r-Rupf projecting over the right hemithorax with distal tip projecting over the mid superior v tessa cava. No pneumothorax. [facility], , 09/21/2024 11:56 AM
[2024-09-21] MEDS: HYDROcodone/APAP 5-325MG 1 EACH TAB PO STA (12:08)
[2024-09-21 12:23] VITALS: BP 120/86; PULSE 65; RESP 16
== END 2024-09-21 12:40 | disposition home or self-care (01) ==
LOC: OR 08:54
PROVIDERS: ATTEND Surgery
DX: C50.411 Malignant neoplasm of upper-outer quadrant of right female breast (principal); I10 Essential (primary) hypertension; J45.909 Unspecified asthma, uncomplicated; R23.3 Spontaneous ecchymoses; Z17.1 Estrogen receptor negative status [ER-]; Z79.899 Other long term (current) drug therapy; Z87.891 Personal history of nicotine dependence; Z88.8 Allergy status to other drugs, medicaments and biological substances; Z98.51 Tubal ligation status
CPT/HCPCS: 81025; 77001; 36561; C1788; J2250; J1642; J2405; J0690 ×2; J2003; J3010; J2704; J2371; J0665

== ENCOUNTER → 2024-12-31 | Outpatient (CLI) | payer BC ==
--- NOTE | 2024-12-31 11:02 | USB ---
Reason for Exam: Clinical finding. Patient History: Menarche at age 14. First Full-Term at age 21. Premenopausal. Breast cancer, right, age 38. Hormonal Contraceptives, from age 18 until age 35. 08/07/2024, Malignant US biopsy breast VAD RT on the right side. Maternal grandmother had breast cancer, age 38. Maternal grandmother had ovarian cancer, age 40. Maternal aunt had breast cancer, age 40. Cousin had breast cancer, age 42. Maternal aunt had breast cancer, age 40. Cousin had breast cancer, age 45. Maternal aunt had breast cancer, age 38. Maternal aunt had breast cancer, age 37. Cousin had breast cancer, age 44. Technique: Method: Targeted. Prior Study Comparison: 05/23/2022 Bilateral MG 3D screening mammo w/cad, [facility]. 07/30/2024 Bilateral MG 3D diag mammo w/cad DEMETRA, [facility]. 08/07/2024 Right MG diagnostic mammo RT wo CAD, [facility]. Findings: The upper section of the breast of the right breast, the axilla of the right breast and the retroareolar of the right breast were scanned. Ultrasound was performed at the right 10:00, retroareolar and axillary regions. Previously noted lobulated mass at the right 10:00 position is no longer visualized. All that is seen at this time is the placed microclip. No adenopathy present. Overall Assessment: Known biopsy proven malignancy, BI-RAD 6 Management: Surgical Consultation of both breasts. A clinical breast exam by your physician is recommended on an annual basis and results should be correlated with mammographic findings. This exam should not preclude additional follow-up of suspicious palpable abnormalities. Results were given to the patient verbally at the time of exam. [facility], , 12/31/2024 10:59 AM. Electronically signed and approved by: Christiano Wells M.D. Radiologis
== END | disposition home or self-care (01) ==
LOC: RADUSWWP 10:33
PROVIDERS: ATTEND Internal Medicine Hematology & Oncology
DX: C50.411 Malignant neoplasm of upper-outer quadrant of right female breast (principal); J45.909 Unspecified asthma, uncomplicated; R23.3 Spontaneous ecchymoses; Z17.1 Estrogen receptor negative status [ER-]; Z71.3 Dietary counseling and surveillance; Z85.3 Personal history of malignant neoplasm of breast; Z80.3 Family history of malignant neoplasm of breast; Z92.0 Personal history of contraception

== ENCOUNTER → 2025-01-28 | Outpatient (CLI) | payer BC ==
--- NOTE | 2025-01-28 10:37 | P.PN ---
Subjective Progress Note Date: 01/28/25 01-28-25 Principal diagnosis: right breast invasive ductal [id number] (-); stage II 11-18-24 History of Present Illness Consult date: Reason for Consult: right breast invasive ductal carcinoma [id number] Requesting physician: Elida Jessica History of present illness: 09-03-24 Edie is a 38-year-old female seen in consultation for Dr. Jessica, and Dr. Lockett regarding a biopsy-proven right breast invasive ductal carcinoma. This is ER/MT negative and HER2 is negative. She underwent a bilateral mammogram on 07-30-2024. There was a 3.5 cm high density irregular mass at the upper outer quadrant of the right breast. An ultrasound was requested. No lesions of concern were seen in the left breast. An ultrasound was performed on 07-30-2024. This confirmed a 3.7 x 4 x 3.2 cm lesion at the 10 o'clock position of the right breast which was highly suspicious. She subsequently underwent an ultrasound-guided core biopsy of the lesion on 08-07-2024. This was a grade 3 invasive ductal carcinoma ER/MT negative HER2 negative. She felt something in her breast in late June. It has not changed since she noted it. She had a bilateral mammogram performed in 05-23-2022 secondary to a strong family history and this was considered BI-RADS 2. She has never had any surgery on her breast. She has not had any trauma or infection in her breast. She is not complaining of any nipple discharge or skin changes. She is having normal menstrual periods and does not have any changes in her breast at the time of her menstrual period. Patient's case presented at tumor board on 08-25-2024. She is being seen by Dr. Galvan. She will have neoadjuvant chemotherapy. A PET scan has been done at [facility] results are not yet available. She will see him next week for those results and possible being set up for chemotherapy at that time. A brain MRI was done on 08-21-2024 did which did not reveal any brain mets. The patient has been called and this information has been discussed with her. I will be seeing her next week as well. She had an echo done results pending She will discuss with Dr. Galvan tomorrow about port placement Since she was seen last on 08-14-2024 the lesion in the breast has increased in size. She does have appointment tomorrow with Dr. Galvan and the plan is for neoadjuvant chemotherapy. 11-18-24 Genetic testing (-) on her mother Jeanne Bae Patient had genetic testing and told she was (-) port placed 09-21-[address] Holt started chemotherapy 09-25-24; she has had 8 courses completed, they want to do 12 of TC and the four of AC She will finish on 12/12 for phase one and then in December will start phase two and tghat will be every 21 days to finish in February first week; PET scan done at [facility]; lesion in the right breast and right axilla no metastatic disease The tumor has shrunk after the third week and now can't feel it anymore 2 maternal aunts breast cancer PET scan The patient has been counseled regarding genetic testing. follow up in two weeks 1 hour spent in counseling and treatment options. She was seen with her parents and boyfriend. All questions were answered. 01-28-25 Case and chart reviewed and discussed with Dr. Galvan, will be ready for surgery 4 weeks after finishes chemotherapy. She can have CBC 2 weeks after finishes February 28 and if OK than OK for surgery on March 25. This is discussed with the patient and her mother. Note DR. Galvan 11-24-24 reviewed. The patient was recently admitted to the hospital with bilateral pulmonary emboli and pneumonia. She is now on Eliquis, she has completed her antibiotic treatment. She was told that she had blood clots in her legs and that that is what traveled to her lungs. Caffeine: 1 coke/day nicotine: none now chocolate: occasional BCP: tubaligation in 2020, used from 18 to 35 hormones: none Family History: maternal grandmother: breast and ovarian cancer 3 maternal cousin between 37 to 45 with breast cancer one of breast cancer Hormonal History: menarche: 14 breast fed: yes, age at first : 22 periods regular last July 26, last about 3 days Surgical History: tubaligation Medical Hitory: asthma Social History: nicotine: 12 years / PPD stopped about 7 years ago alcohol: none drugs: none Review of Systems - Constitutional Denies fever, Denies weight loss - EENT Eyes: denies blurred vision Ears: bilateral: tinnitus, deny: decreased hearing Ears, nose, mouth and throat: Denies dysphagia - Breasts bilateral: as per HPI - Cardiovascular Cardiovascular Comment(s): asthma - Respiratory bilateral pulmonary embolism - Gastrointestinal Reports as per HPI - Genitourinary Genitourinary: Denies dysuria, Denies hematuria Menstruation: Reports period normal - Musculoskeletal Reports myalgias - Integumentary Integumentary Comment(s): 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 Galvan Denies rash, Denies unusual bruising - Neurological Denies headaches, Denies syncope - Psychiatric Reports anxiety - Endocrine Reports fatigue, Reports weight change - Hematologic/Lymphatic Reports easy bruising - Allergic/Immunologic Reports seasonal allergies Past Medical History Past Medical History: Asthma Additional Past Medical History / Comment(s): HAS BEEN HAVING GALLBLADDER ISSUES. SEASONAL ALLERGIES History of Any Multi-Drug Resistant Organisms: None Reported Past Surgical History: Tubal Ligation Past Anesthesia/Blood Transfusion Reactions: No Reported Reaction Additional Past Anesthesia/Blood Transfusion Reaction / Comm: NO PRIOR SX HX Past Psychological History: Anxiety Smoking Status: Former smoker Past Alcohol Use History: None Reported Additional Past Alcohol Use History / Comment(s): SMOKES 1/4 PPD SINCE AGE 21, quit 2015? Past Drug Use History: None Reported - Past Family History Father Family Medical History: Deep Vein Thrombosis (DVT) Medications and Allergies Home Medications Medication Instructions Recorded Confirmed Type ALPRAZolam [Xanax] 0.5 mg PO QAM 09/12/21 07/31/24 History Cetirizine HCl [Zyrtec] 10 mg PO QAM 09/12/21 07/31/24 History Ibuprofen [Motrin] 800 mg PO Q8H PRN 09/12/21 07/31/24 History Montelukast Sodium [Singulair] 10 mg PO HS 09/12/21 07/31/24 History Fluticasone/Umeclidin/Vilanter 1 puff INHALATION DAILY 07/31/24 07/31/24 History [Trelegy Ellipta 200-62.5-25] Multivitamin [Multivitamins Adult 1 each PO DAILY 07/31/24 07/31/24 History Gummies] Pregabalin [Lyrica] 75 mg PO HS 07/31/24 07/31/24 History Allergies Allergy/AdvReac Type Severity Reaction Status Date / Time bupropion [From Wellbutrin] Allergy Anaphylaxis Verified 08/14/24 07:47 carrot Allergy Anaphylaxis Verified 08/14/24 07:47 metoclopramide [From Reglan] Allergy Rash/Hives Verified 08/14/24 07:47 Objective - Constitutional General appearance: Present: cooperative - EENT Eyes: Present: EOMI ENT: Present: hearing grossly normal - Neck Neck: Present: normal ROM - Respiratory Respiratory: bilateral: CTA - Cardiovascular Rhythm: regular Heart sounds: normal: S1, S2 - Integumentary Integumentary: Present: normal turgor - Musculoskeletal Musculoskeletal: Present: gait normal - Psychiatric Psychiatric: Present: A&O x's 3, appropriate affect, intact judgment & insight - Additional findings Additional findings: Breast Exam: BRA: 36D Inspection: bilateral grade 2 ptosis Palpation: Right breast: Multi positional exam mass right breast upper outer quadrant approximately 5.5 by 6 cm in size (increased in size) on last exam no longer palpable Right axilla: No adenopathy of concern Left breast: Multi positional exam no dominant masses or nodules of concern Left axilla: No adenopathy of concern Assessment and Plan Assessment: Impression: Right breast invasive ductal carcinoma grade 3 ER/MT negative HER2 negative neoadjuvant chemotherpay; tumor is no longer palpable Patient recently admitted with pulmonary emboli, bilateral pneumonia, DVT Plan: Patient to see plastic surgery again prior to surgery scheduled for March 25, [address] Lockett for surgery clearance from pulmonary for surgery claerance Dr. Galvan Follow-up here for pre-op visit continue chemotherapy CBC to be done 2 weeks after patient completes chemotherapy Genetic testing results to be obtained Schedule surgery in March 25, 2025 will stop eliquis as per Dr. Galvan (? DVT prophylaxis using sequential compression devices at the time of surgery, will discuss this with pulmonary) CC: Dr. Jessica, Dr. Lockett
[2025-01-28 10:40] VITALS: BP 117/87; PULSE 103; RESP 17; TEMP 97.2
== END ==
LOC: WWCWWP 10:03
PROVIDERS: ATTEND Surgery
DX: C50.411 Malignant neoplasm of upper-outer quadrant of right female breast (principal); I82.409 Acute embolism and thrombosis of unspecified deep veins of unspecified lower extremity; J18.9 Pneumonia, unspecified organism; I26.99 Other pulmonary embolism without acute cor pulmonale; F17.200 Nicotine dependence, unspecified, uncomplicated; Z17.1 Estrogen receptor negative status [ER-]; Z79.01 Long term (current) use of anticoagulants; Z17.32 Human epidermal growth factor receptor 2 negative status; Z91.018 Allergy to other foods; Z88.8 Allergy status to other drugs, medicaments and biological substances

== ENCOUNTER → 2025-03-11 | Outpatient (CLI) | payer BC ==
[2025-03-11 15:15] VITALS: BP 122/77; PULSE 76; RESP 16; TEMP 97.9
--- NOTE | 2025-03-11 15:42 | P.BCPN ---
Subjective Progress Note Date: 03/11/25 Principal diagnosis: right breast invasive ductal carcinoma [id number] Edie Bae EMedical Record Number: [id number] Date of : 87 Patient Status: Clinical Attending Provider: Toyin Orozco Date: 01/28/25 10:18 Initialization Date: 01/28/25 10:18 Subjective Progress Note Date: 01/28/25 01-28-25 Principal diagnosis: right breast invasive ductal [id number] (-); stage II 11-18-24 History of Present Illness Consult date: Reason for Consult: right breast invasive ductal carcinoma [id number] Requesting physician: Elida Jessica History of present illness: 09-03-24 Edie is a 38-year-old female seen in consultation for Dr. Jessica, and Dr. Lockett regarding a biopsy-proven right breast invasive ductal carcinoma. This is ER/NM negative and HER2 is negative. She underwent a bilateral mammogram on 07-30-2024. There was a 3.5 cm high density irregular mass at the upper outer quadrant of the right breast. An ultrasound was requested. No lesions of concern were seen in the left breast. An ultrasound was performed on 07-30-2024. This confirmed a 3.7 x 4 x 3.2 cm lesion at the 10 o'clock position of the right breast which was highly suspicious. She subsequently underwent an ultrasound-guided core biopsy of the lesion on 08-07-2024. This was a grade 3 invasive ductal carcinoma ER/NM negative HER2 negative. She felt something in her breast in late June. It has not changed since she noted it. She had a bilateral mammogram performed in 05-23-2022 secondary to a strong family history and this was considered BI-RADS 2. She has never had any surgery on her breast. She has not had any trauma or infection in her breast. She is not complaining of any nipple discharge or skin changes. She is having normal menstrual periods and does not have any changes in her breast at the time of her menstrual period. Patient's case presented at tumor board on 08-25-2024. She is being seen by Dr. Galvan. She will have neoadjuvant chemotherapy. A PET scan has been done at [facility] results are not yet available. She will see him next week for those results and possible being set up for chemotherapy at that time. A brain MRI was done on 08-21-2024 did which did not reveal any brain mets. The patient has been called and this information has been discussed with her. I will be seeing her next week as well. She had an echo done results pending She will discuss with Dr. Galvan tomorrow about port placement Since she was seen last on 08-14-2024 the lesion in the breast has increased in size. She does have appointment tomorrow with Dr. Galvan and the plan is for neoadjuvant chemotherapy. 11-18-24 Genetic testing (-) on her mother Jeanne Bae Patient had genetic testing and told she was (-) port placed 09-21-[address] Holt started chemotherapy 09-25-24; she has had 8 courses completed, they want to do 12 of TC and the four of AC She will finish on 12/12 for phase one and then in December will start phase two and tghat will be every 21 days to finish in February; PET scan done at [facility]; lesion in the right breast and right axilla no metastatic disease The tumor has shrunk after the third week and now can't feel it anymore 2 maternal aunts breast cancer PET scan The patient has been counseled regarding genetic testing. follow up in two weeks 1 hour spent in counseling and treatment options. She was seen with her parents and boyfriend. All questions were answered. 01-28-25 Case and chart reviewed and discussed with Dr. Galvan, will be ready for surgery 4 weeks after finishes chemotherapy. She can have CBC 2 weeks after finishes February 28 and if OK than OK for surgery on March 25. This is discussed with the patient and her mother. Note DR. Galvan 11-24-24 reviewed. The patient was recently admitted to the hospital with bilateral pulmonary emboli and pneumonia. She is now on Eliquis, she has completed her antibiotic treatment. She was told that she had blood clots in her legs and that that is what traveled to her lungs. 03-11-25 Edie is a 39-year-old female seen in consultation for Dr. Jessica, and Dr. Lockett regarding a biopsy-proven right breast invasive ductal carcinoma. This is ER/NM negative and HER2 is negative. She underwent a bilateral mammogram on 07-30-2024. There was a 3.5 cm high density irregular mass at the upper outer quadrant of the right breast. An ultrasound was requested. No lesions of concern were seen in the left breast. An ultrasound was performed on 07-30-2024. This confirmed a 3.7 x 4 x 3.2 cm lesion at the 10 o'clock position of the right breast which was highly suspicious. She subsequently underwent an ultrasound-guided core biopsy of the lesion on 08-07-2024. This was a grade 3 invasive ductal carcinoma ER/NM negative HER2 negative. She felt something in her breast in late June. It has not changed since she noted it. She had a bilateral mammogram performed in 05-23-2022 secondary to a strong family history and this was considered BI-RADS 2. She has never had any surgery on her breast. She has not had any trauma or infection in her breast. She is not complaining of any nipple discharge or skin changes. She is having normal menstrual periods and does not have any changes in her breast at the time of her menstrual period. Patient's case presented at tumor board on 08-25-2024. She is being seen by Dr. Galvan. She completed neoadjuvant chemotherapy. A PET scan was been done at [facility] this revealed the lesion in the right breast and right axilla no metastatic disease. A brain MRI was done on 08-21-2024 did which did not reveal any brain mets. She had an echo done results pending A port was placed and the patient received neoadjuvant chemotherapy. On her last visit the tumor was no longer palpable. Of concern is the fact that in approximately December she developed bilateral pulmonary emboli. I have discussed this with Dr. Galvan he believes that at this time her Eliquis can be stopped 48 hours preop and started again 24 hours postop. Additionally he believes that she is stable to have bilateral lower extremity compression stockings. She did not have an axillary node biopsy . Caffeine: 1 coke/day nicotine: none now chocolate: occasional BCP: tubaligation in 2020, used from 18 to 35 hormones: none Family History: maternal grandmother: breast and ovarian cancer 3 maternal cousin between 37 to 45 with breast cancer one of breast cancer Hormonal History: menarche: 14 breast fed: yes, age at first : 22 periods regular last July 26, last about 3 days Surgical History: tubaligation Medical Hitory: asthma Social History: nicotine: 12 years 1/4 PPD stopped about 7 years ago alcohol: none drugs: none Review of Systems - Constitutional Denies fever, Denies weight loss - EENT Eyes: denies blurred vision Ears: bilateral: tinnitus, deny: decreased hearing Ears, nose, mouth and throat: Denies dysphagia - Breasts bilateral: as per HPI - Cardiovascular Cardiovascular Comment(s): asthma - Respiratory bilateral pulmonary embolism - Gastrointestinal Reports as per HPI - Genitourinary Genitourinary: Denies dysuria, Denies hematuria Menstruation: Reports period normal - Musculoskeletal Reports myalgias - Integumentary Integumentary Comment(s): 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 Galvan Denies rash, Denies unusual bruising - Neurological Denies headaches, Denies syncope - Psychiatric Reports anxiety - Endocrine Reports fatigue, Reports weight change - Hematologic/Lymphatic Reports easy bruising - Allergic/Immunologic Reports seasonal allergies Past Medical History Past Medical History: Asthma Additional Past Medical History / Comment(s): HAS BEEN HAVING GALLBLADDER ISSUES. SEASONAL ALLERGIES History of Any Multi-Drug Resistant Organisms: None Reported Past Surgical History: Tubal Ligation Past Anesthesia/Blood Transfusion Reactions: No Reported Reaction Additional Past Anesthesia/Blood Transfusion Reaction / Comm: NO PRIOR SX HX Past Psychological History: Anxiety Smoking Status: Former smoker Past Alcohol Use History: None Reported Additional Past Alcohol Use History / Comment(s): SMOKES 1/4 PPD SINCE AGE 21, quit 2015? Past Drug Use History: None Reported - Past Family History Father Family Medical History: Deep Vein Thrombosis (DVT) Medications and Allergies Home Medications Medication Instructions Recorded Confirmed Type ALPRAZolam [Xanax] 0.5 mg PO QAM 09/12/21 07/31/24 History Cetirizine HCl [Zyrtec] 10 mg PO QAM 09/12/21 07/31/24 History Ibuprofen [Motrin] 800 mg PO Q8H PRN 09/12/21 07/31/24 History Montelukast Sodium [Singulair] 10 mg PO HS 09/12/21 07/31/24 History Fluticasone/Umeclidin/Vilanter 1 puff INHALATION DAILY 07/31/24 07/31/24 History [Trelegy Ellipta 200-62.5-25] Multivitamin [Multivitamins Adult 1 each PO DAILY 07/31/24 07/31/24 History Gummies] Pregabalin [Lyrica] 75 mg PO HS 07/31/24 07/31/24 History Allergies Allergy/AdvReac Type Severity Reaction Status Date / Time bupropion [From Wellbutrin] Allergy Anaphylaxis Verified 08/14/24 07:47 carrot Allergy Anaphylaxis Verified 08/14/24 07:47 metoclopramide [From Reglan] Allergy Rash/Hives Verified 08/14/24 07:47 Objective - Vital Signs Vital Signs: Vital Signs Temp 97.9 F 03/11/25 15:11 Pulse 76 03/11/25 15:11 Resp 16 03/11/25 15:11 BP 122/77 03/11/25 15:11 Pulse Ox 98 03/11/25 15:11 FiO2 Intake & Output 03/10/25 03/11/25 03/11/25 18:59 06:59 18:59 Weight 97.069 kg - Constitutional General appearance: Present: cooperative - EENT Eyes: Present: EOMI ENT: Present: hearing grossly normal - Neck Neck: Present: normal ROM - Breast Breast-Narrative: BRA: 36D Inspection: bilateral grade 2 ptosis Palpation: Right breast: Multi positional exam mass right breast upper outer quadrant approximately 5.5 by 6 cm in size (increased in size) on last exam no longer palpable Right axilla: No adenopathy of concern Left breast: Multi positional exam no dominant masses or nodules of concern Left axilla: No adenopathy of concern Bra Size: 36D Ptosis: Grade 2: Right Breast Ptosis, Left Breast Ptosis Breast: both: normal Right Breast Palpation (Multi-positional): No dominant masses, Fibrocystic Changes Left Breast Palpation (Multi-positional): No dominant masses, Fibrocystic Changes Right Axilla Palpation: No adenopathy of concern Left Axilla Palpation: No adenopathy of concern - Respiratory Respiratory: bilateral: CTA - Cardiovascular Rhythm: regular Heart sounds: normal: S1, S2 - Gastrointestinal General gastrointestinal: Present: soft - Integumentary Integumentary: Present: normal turgor - Musculoskeletal Musculoskeletal: Present: gait normal - Psychiatric Psychiatric: Present: A&O x's 3, appropriate affect, intact judgment & insight - Additional findings Additional findings: Breast Exam: BRA: 36D Inspection: bilateral grade 2 ptosis Palpation: Right breast: Multi positional exam mass right breast upper outer quadrant approximately 5.5 by 6 cm in size (increased in size) on last exam no longer palpable Right axilla: No adenopathy of concern Left breast: Multi positional exam no dominant masses or nodules of concern Left axilla: No adenopathy of concern Assessment and Plan Plan: Impression: Right breast invasive ductal carcinoma grade 3 ER/NM negative HER2 negative neoadjuvant chemotherpay; tumor is no longer palpable Patient developed pulmonary emboli, bilateral pneumonia, DVT; treated with Eliquis; better at this time Plan: Patient to see plastic surgery again prior to surgery scheduled for April 06, [address] Lockett for surgery clearance from pulmonary for surgery clearance Dr. Gavlan (have personally discussed case with him on 03-11-25 and states she is ready for surgery) Genetic testing results (-) will stop eliquis as per Dr. Galvan; 48 hours preoperative, to resume 24 hours postoperative, as per Dr. Galvan the patient can have bilateral sequential compression devices (? DVT prophylaxis using sequential compression devices at the time of surgery, will discuss this with pulmonary) She is not going to have her port removed at this time The procedure will be: Bilateral skin sparing mastectomy with a right sentinel node injection, right sentinel node biopsy, bilateral implant reconstruction Risk and benefits of the procedure discussed with the patient. Risk include but are not limited to bleeding, infection, reaction to the anesthetic. The patient understands and wishes to proceed. Risks related to the sentinel node biopsy include but are not limited to bleeding, infection, reaction to the anesthetic. Possible decrease sensation to the inner arm. Possible injury to the thoracodorsal or long thoracic nerves which could result in winged scapula. She understands and wishes to proceed. Consent: I have discussed the risks, benefits and alternative therapies for the above-mentioned procedure and for both sedation/analgesia as well as necessary blood product administration, if indicated, as they pertain to this patient. The patient has indicated understanding and acceptance of the risks and procedures discussed. CC: Dr. Jessica, Dr. Lockett Prep Education Provided - Preoperative Education Given Pre-Op Kit Given Date: 03/11/25 - Functional Assessment Performed?: Yes (arm abduction) - Smoking Cessation Education Provided?: No ( non-smoker)
== END ==
LOC: WWCWWP 15:01
PROVIDERS: ATTEND Surgery
DX: D05.11 Intraductal carcinoma in situ of right breast (principal); I26.99 Other pulmonary embolism without acute cor pulmonale; I82.409 Acute embolism and thrombosis of unspecified deep veins of unspecified lower extremity; J18.9 Pneumonia, unspecified organism; F17.200 Nicotine dependence, unspecified, uncomplicated; Z91.048 Other nonmedicinal substance allergy status; Z88.8 Allergy status to other drugs, medicaments and biological substances

== ENCOUNTER 2025-04-06 10:48 | Inpatient (IN) | payer BC ==
[2025-04-01 14:01] VITALS: BMI 34.9
[~2025-04-06 10:48] MED LIST changes: -LIDOCAINE 1% (10MG/ML) FOR IV START INTRADERMA PRN; -Pre Op ABX Message 1 EACH MISC MISCELLANE ONE
[2025-04-06] MEDS: IV FLUID CONTINUATION 1,000 ML IV ONE (11:47)
[2025-04-06] MEDS: LACTATED RINGERS 1,000 ML IV SCH (11:48)
[2025-04-06] MEDS: ACETAMINOPHEN TAB 500 MG TAB PO PRN (11:48)
[2025-04-06] MEDS: ONDANSETRON 4 MG/2 ML VIAL IVP ONE (11:51)
[2025-04-06] MEDS: DEXAMETHASONE SOD PHOSPHATE 4 MG/ML 1 ML VIAL IV ONE (11:52)
[2025-04-06] MEDS: SCOPOLAMINE 1 MG/72 HR PATCH TRANSDERM ONE (11:55)
[2025-04-06] MEDS: MIDAZOLAM 2 MG/2 ML VIAL IV PRN (12:03)
[2025-04-06] MEDS: fentaNYL (PF) 50 MCG/ML 2 ML AMP IVP PRN (12:03)
[2025-04-06] MEDS: HEPARIN SODIUM,PORCINE 5,000 UNIT/ML 1 ML VIAL SQ PRN (12:18)
--- NOTE | 2025-04-06 12:28 | NM ---
EXAMINATION TYPE: NM sentinel node injection DATE OF EXAM: 04/06/2025 COMPARISON: NONE CLINICAL INDICATION: Female, 39 years old with history of C50.411 BREAST CANCER; right-sided breast c ancer 10:00 position TECHNIQUE AND FINDINGS: The procedure of sentinel lymph node injection was explained to the patient. The benefits, alternatives, and risks were discussed. An informed consent was then obtained. Overlying skin is cleaned with sterile alcohol. Following this, 517 uCi Tc99m Tilmanocept was inject ed in the upper outer aspect of the right nipple intradermally. The patient tolerated the procedure well without any immediate complication. Procedure performed in p resurgical area. Patient subsequently Taken to surgery for surgical procedure what is presumed intrao perative gamma probe will be used for sentinel lymph node detection. IMPRESSION: Right breast radiotracer injection for sentinel node localization as above. [facility], , 04/06/2025 12:26 PM
--- NOTE | 2025-04-06 13:27 | P.ANPRN ---
Procedure Note - Anesthesia - Nerve Block Performed Bilateral Pec 1 and Pec 2 Single Time Out Performed: Yes (1202) Date of Procedure: 04/06/25 Procedure Start Time: 12:03 Procedure Stop Time: 12:10 Location of Patient: PreOp Indication: Acute Post-Operative Pain, Requested by Surgeon Specifically requested for management of pain by DrBuck: Toyin Orozco Sedation Type: Sedate with meaningful contact maintained Preparation: Sterile Prep Position: Supine (arms out) Catheter: None Needle Types: Pajunk Needle Gauge: 21 Ultrasound used to visualize needle placement: Yes Ultrasound used to observe medication spread: Yes Injectate: 0.5% Ropivacaine (see comment for volume) (7.5 cc +5cc nacl pf + 1mg decadron at each r/l pec 1/2. 30cc total with 20cc nacl pf& 4dec)
[2025-04-06] MEDS ORDERED: ePHEDrine 50 MG/ML 1 ML VIAL ONE (13:49)
[2025-04-06] MEDS ORDERED: PROPOFOL 10 MG/ML 20 ML VIAL IV ONE (13:49)
[2025-04-06] MEDS ORDERED: HYDROmorphone (PF) 1 MG/ML ONE (13:49)
[2025-04-06] MEDS ORDERED: GLYCOPYRROLATE 0.2 MG/ML 2 ML VIAL ONE (13:49)
[2025-04-06] MEDS ORDERED: SUCCINYLCHOLINE CHLORIDE 200 MG/10 ML VIAL IV ONE (13:49)
[2025-04-06] MEDS ORDERED: NEOSTIGMINE 1 MG/ML 10 ML VIAL ONE (13:49)
[2025-04-06] MEDS ORDERED: SODIUM CHLORIDE 0.9% (PF) 10 ML VIAL ONE (13:49)
[2025-04-06] MEDS ORDERED: MIDAZOLAM 2 MG/2 ML VIAL ONE (13:49)
[2025-04-06] MEDS ORDERED: ROCURONIUM 10 MG/ML (5 ML VIAL) IV ONE (13:49)
[2025-04-06] MEDS ORDERED: DEXAMETHASONE SOD PHOSPHATE 4 MG/ML 1 ML VIAL ONE (13:49)
[2025-04-06] MEDS ORDERED: LIDOCAINE 1% INJ 10MG/ML (20 ML MDV) ONE (13:49)
[2025-04-06] MEDS ORDERED: PHENYLEPHRINE 10 MG/ML VIAL ONE (13:49)
[2025-04-06] MEDS ORDERED: fentaNYL (PF) 50 MCG/ML 2 ML AMP ONE (13:49)
[2025-04-06] MEDS ORDERED: ROPIVACAINE 5 MG/ML 30 ML VIAL ONE (13:49)
[2025-04-06] MEDS ORDERED: NALOXONE 0.4 MG/ML 1 ML VIAL IV PRN (15:58)
[2025-04-06] MEDS ORDERED: HYDROcodone/APAP 5-325MG 1 EACH TAB PO PRN (15:58)
--- NOTE | 2025-04-06 15:58 | P.BCAON ---
Date of Procedure: 04/06/25 Preoperative Diagnosis: Right breast invasive ductal carcinoma/status post neoadjuvant chemotherapy Postoperative Diagnosis: Same Procedure(s) Performed: Bilateral mastectomy with right sentinel node biopsy Anesthesia: KRISTI Surgeon: Toyin Orozco Estimated Blood Loss (ml): 20 IV fluids (ml): 1,000 Pathology: other (Right sentinel node, bilateral breast) Condition: stable Disposition: floor Indications for Procedure: Right breast invasive ductal carcinoma Operative Findings: Fibrofatty breast tissue Description of Procedure: The patient was seen in the preoperative area and marked by plastic surgery so that she could undergo a bilateral skin sparing mastectomy. She was injected for a right sentinel lymph node as well with a radial active tracer. The patient was then brought to the operative suite. Following induction of anesthesia the neoprobe was used to interrogate the axilla. Radiotracer was noted to be present in the right axilla. The patient was then prepped and draped in a sterile fashion. The right breast was approached initially. Using the neoprobe the area of greatest radioactivity was identified. An incision was made and carried down to a radioactive lymph node. The node was palpable. The 10-second count on the node was 19,560. The node was excised. The background 10-second count was 12. No other palpable or radioactive lymph nodes were identified. The wound was irrigated. After we were assured that hemostasis was attained the deep tissues were closed using 3-0 Vicryl suture. The skin was closed using 4-0 Monocryl. The area of the right breast was then approached. A periareolar incision which had been placed by Dr. Corona in the preoperative area was utilized. The incision was carried down into the subcutaneous tissue. Circumferential di ssection was performed down to the pectoralis muscle. The breast was then removed from medial to lateral being careful to maintain hemostasis using the electrocautery device as well as the harmonic scalpel. The specimen was removed. The specimen was marked for superior short and lateral long sutures. The wound was carefully evaluated. The thickness of the flaps was evaluated and some additional tissue was taken from the superior and inferior lateral flap areas. Again after we are sure that hemostasis was attained the wound was well irrigated. Surgicel in powder form was placed. Dr. Marquez from plastic surgery then entered to do his implant reconstruction placement of an regulatory scientist. The area of the left breast was approached. Periareolar incision was used which had been marked by Dr. Corona in the preoperative area. The incision was carried down to the subcutaneous tissue. Circumferential dissection was performed down to the pectoralis muscle in the subcutaneous plane. The breast was removed from medial to lateral off the pectoralis muscle being careful to maintain hemostasis using the electrocautery device as well as the harmonic scalpel. The specimen was removed. The specimen was marked with superior short suture and a lateral long suture. The wound was carefully evaluated. The thickness of the flaps were evaluated and noted to be symmetrical. A small amount of additional tissue was taken from the superior flap. After we are sure that hemostasis was attained Surgicel and powder form was placed. The area was left open for Dr. Corona to place an regulatory scientist. The remainder of the dictation will be by plastic surgery Dr. Collins again - Sentinal Node Biopsy Operation performed with curative intent: Yes Tracer(s) used in upfront surgery (non-neoadjuvant): radioactive tracer Tracer(s) used in the neoadjuvant setting: radioactive tracer All nodes present at end of dye-filled channel removed: N/A All significantly radioactive nodes were removed: Yes All palpably suspicious nodes were removed: Yes
[2025-04-06] MEDS: LACTATED RINGERS 1,000 ML IV ONE ×2 (17:09→17:12)
[2025-04-06] MEDS: ONDANSETRON 4 MG/2 ML VIAL IVP PRN (18:03)
[2025-04-06] MEDS: SODIUM CHLORIDE 0.9% 1,000 ML IV SCH (19:00)
[2025-04-06] MEDS: HYDROmorphone 1 MG/ML 1 ML SYRINGE IVP PRN (19:17)
[2025-04-06] MEDS: HEPARIN SODIUM,PORCINE 5,000 UNIT/ML 1 ML VIAL SQ SCH (19:52)
--- NOTE | 2025-04-07 00:17 | OP ---
OPERATIVE REPORT DATE OF SERVICE : 04/06/2025 PREOPERATIVE DIAGNOSES: 1. Acquired loss, right and left breast. 2. Right breast cancer. POSTOPERATIVE DIAGNOSES: 1. Acquired loss, right and left breast. 2. Right breast cancer. OPERATIVE PROCEDURES: 1. Immediate reconstruction of left breast, following mastectomy with insertion of tissue upholsterer assembly line, subsequent outpatient expansion. 2. Immediate reconstruction of right breast following mastectomy with insertion of tissue upholsterer assembly line, subsequent outpatient expansion. 3. Right and left-sided lipodermal pedicle flaps for right and left breast reconstruction, combined area 94 square cm. 4. Implantation of reconstructive graft for right and left breast reconstruction. OPERATIVE INDICATIONS: The patient is a 39-year-old female who has undergone neoadjuvant therapy for breast cancer of the right breast. She is going to surgery for bilateral mastectomy procedures today with sentinel lymph node excision on the right side. The patient has elected to proceed with immediate breast reconstruction with her surgery. Her breasts are ptotic with redundant skin subcutaneous tissue to optimize the patient's reconstruction shape form and healing. I have recommended lipodermal pedicle flaps on lateral aspect to buttress these areas. The patient is in agreement as a part of her surgery. In addition, she is aware of potential risks and complications related to surgery such as infection, wound healing problems, hematoma, seroma, among others. She has requested to perform the surgery. OPERATIVE PROCEDURE SUMMARY: The patient was seen in the preoperative area, markings made, procedure reviewed. All questions answered. She was transferred to operative room where she was placed in supine position. Following induction general endotracheal anesthesia, the patient is prepped and draped in usual fashion. Dr. Orozco initiated with her surgery with right sentinel lymph node excision, then right mastectomy procedures. Once this was completed, I entered the operative suite. Sponge and needle counts were correct. The right mastectomy wound was open, no active bleeding cavities measured. Additional dissection was performed elevating skin, subcutaneous tissue to optimize reconstruction, placement of an upholsterer assembly line for this purpose. This was completed with cautery. Hemostasis maintained with cautery. The field was irrigated. The width was measured, tissue upholsterer assembly line then opened on the field. Both tissue expanders were the same size today from [facility] tissue upholsterer assembly line line, reference #[id number], the right- sided device, serial #[id number] and later when open, the left-sided device serial #[id number]. The right-sided device was irrigated with saline, all air extracted, initially filled to a volume of 600 mL, however, this was too much volume for the patient. The volume was reduced by 50 mL amounts until reaching the volume that adequately filled the cavity space and would allow for closure. This volume turned out to be 350 mL of air. The upholsterer assembly line was removed from the cavity, irrigated, AlloDerm reconstructive graft was opened on the field, AlloDerm select restore tissue matrix perforated large size measuring 327 cm was opened. The reconstructive graft tissue was irrigated with normal saline several times. The graft was then used to cover all anterior surfaces of the upholsterer assembly line, secured to the suture tabs with interrupted 2-0 Vicryl. All graft was used. The left-sided upholsterer assembly line was now opened on the field. Again, all air extracted. The upholsterer assembly line was irrigated with saline and filled to a volume of 350 mL. A second piece of graft material was opened, AlloDerm select restore tissue matrix perforated large size measured 327 square cm, was opened, irrigated several times with saline and then secured to the tissue upholsterer assembly line anterior surfaces with interrupted 2-0 Vicryl to the suture tabs. Once the left-sided mastectomy procedures complete, the wound was inspected and no active bleeding was irrigated. Additional dissection was required to optimize position of an upholsterer assembly line elevating skin and subcutaneous tissue were necessary along superior medial and inferior aspects as was done on the right side. Hemostasis maintained with cautery. Both expanders were placed for test fitting, it was optimal. Both expanders removed and a 19-round Yohannes channel drains inserted, surgical field brought separate stab incision in the right or left anterior left chest wall and sutured in place with 2-0 Prolene. Both cavities were then sprayed with Surgicel powder 3 g total. As requested by Dr. Orozco due to the patient's history of anticoagulation from her pulmonary embolism treatment. The expanders were now placed back in a respective cavities and then secured the inferior midline, superior midline suture tab locations, then the other suture tab location secured in all locations using 2-0 Vicryl suture to do this, both mastectomies were performed through a circumareolar approach. However, the patient had significant redundant skin and subcutaneous tissue. This tissue was used to create a lipodermal flap to buttress the lateral aspect and having this tissue available to decrease the hollowness that would occur in this area. The area of tissue for the flap creation was measured on the right side 8 x 5 square cm and the left side 9 x 6 square cm with tissue once marked was then de-epithelialized using a 10-blade scalpel and then folded into the lateral space and secured to the lateral edge of the upholsterer assembly line and chest wall with 3-0 Monocryl. The mastectomy incision was now closed using a pursestring technique for the medial one-half with deep dermal 3-0 Monocryl and then the more linear portion along the lateral aspect for each side was approximated using inverted interrupted 4-0 Monocryl followed by closure of the lateral portion closure with running 5-0 Prolene and radha for the pursestring suture location to complete the dermal layer. The surgical liu were cleansed with saline, dried, postoperative bandages placed using bacitracin ointment to the staple site, 1-inch paper tape over suture repairs. Bio patches were placed over the drain sites and covered with Tegaderm. Drains were connected to close bulb suction. Kerlix gauze was then placed over the right and left breast surgical field, secured with 3-0 Medipore tape and a size 4 mammary support position. The patient was then awakened from anesthetic and transferred to recovery room in good condition, stable vital signs. The final fill of each upholsterer assembly line was 350 mL of air. Estimated blood loss from the procedures 20 mL. There were no complications. MMODL / IJN: [id number] /
[2025-04-07 07:53] LABS: Basophils # (A) 0.04 10*3/uL (0.00-0.10); Basophils % (A) 0.3 %; Eosinophils # (A) 0.00 10*3/uL (0.04-0.35); Eosinophils % (A) 0.0 %; HCT 35.0 % (37.2-46.3); HGB 12.0 g/dL (12.0-15.0); Lymphocytes # (A) 1.31 10*3/uL (0.90-5.00); Lymphocytes % (A) 9.6 %; MCH 29.6 pg (27.0-32.0); MCHC 34.3 g/dL (32.0-37.0); MCV 86.4 fL (80.0-97.0); Monocytes # (A) 1.28 10*3/uL (0.20-1.00); Monocytes % (A) 9.3 %; Neutrophils # (A) 10.99 10*3/uL (1.80-7.70); Neutrophils % (A) 80.1 %; Platelet Count 158 10*3/uL (140-440); RBC 4.05 10*6/uL (4.10-5.20); RDW 14.0 % (11.5-14.5); WBC 13.71 10*3/uL (4.50-10.00)
[2025-04-07 09:01] LABS: Anisocytosis (M) Present
--- NOTE | 2025-04-07 10:18 | P.PN ---
Subjective Progress Note Date: 04/07/25 Principal diagnosis: Right breast invasive ductal carcinoma/postop day #1 right sentinel node biopsy bilateral skin-sparing mastectomy/bilateral prepectoral ed tech placement Patient is postop day #1 bilateral mastectomy/right sentinel node biopsy/prepectoral ed tech placement. She is concerned about pain control and still requiring IV pain medicine. She is tolerating diet without difficulty. CHIDI output is serous in nature bilaterally. Objective - Vital Signs Vital signs: Vital Signs Temp 98 F 04/07/25 08:56 Pulse 94 04/07/25 08:56 Resp 16 04/07/25 08:56 BP 113/76 04/07/25 08:56 Pulse Ox 98 04/07/25 04:49 FiO2 Intake & Output 04/06/25 04/07/25 04/07/25 18:59 06:59 18:59 Intake Total 2250 Output Total 30 35 28 Balance 2220 -35 -28 Weight 96 kg Intake: IV 2250 Output: Drainage 35 28 Left Breast 30 8 Right Breast 5 20 Estimated Blood Loss 30 Other: # Voids 1 - Constitutional General appearance: Present: cooperative - EENT Eyes: Present: EOMI ENT: Present: hearing grossly normal - Neck Neck: Present: normal ROM - Respiratory Respiratory: bilateral: CTA - Cardiovascular Rhythm: regular Heart sounds: normal: S1, S2 - Integumentary Integumentary Comment(s): Incision clean and dry bilaterally CHIDI output serous - Psychiatric Psychiatric: Present: A&O x's 3, appropriate affect, intact judgment & insight - Labs CBC & Chem 7: 04/07/25 06:15 Labs: Abnormal Lab Results - Last 24 Hours (Table) 04/07/25 Range/Units 06:15 WBC 13.71 H (4.50-10.00) 10*3/uL RBC 4.05 L (4.10-5.20) 10*6/uL Hct 35.0 L (37.2-46.3) % Immature Gran # 0.09 H (0.00-0.04) 10*3/uL Neutrophils # 10.99 H (1.80-7.70) 10*3/uL Monocytes # 1.28 H (0.20-1.00) 10*3/uL Eosinophils # 0.00 L (0.04-0.35) 10*3/uL Assessment and Plan Assessment: Impression: Patient doing well postoperative Plan: Restart Eliquis tomorrow Hold discharge secondary to pain control at this time probable discharge tomorrow
[2025-04-07] MEDS: SYMBICORT 160-4.5 MCG INHALER INHALATION SCH (11:29)
[2025-04-07] MEDS: ALPRAZolam 0.5 MG TAB PO SCH (11:29)
[2025-04-07] MEDS: METOPROLOL SUCCINATE (ER) 25 MG TAB.ER.24H PO SCH (11:30)
[2025-04-07] MEDS: MULTIVITAMINS, THERA 1 EACH TAB PO SCH (11:30)
[2025-04-07] MEDS: LORATADINE 10 MG TAB PO SCH (11:31)
[2025-04-07] MEDS: TIOTROPIUM 2.5 MCG INHALER INHALATION SCH (11:31)
[2025-04-07] MEDS: HYDROcodone/APAP 5-325MG 1 EACH TAB PO PRN (12:33)
--- NOTE | 2025-04-07 17:42 | P.CONS ---
History of Present Illness - Reason for Consult Consult date: 04/07/25 Medical management Requesting physician: Toyin Orozco - Chief Complaint Breast surgery - History of Present Illness Pleasant 39-year-old patient follows with Dr. Rudy ladd. Chronic medical conditions include asthma, GERD. Diagnosed with breast cancer July 2024. Stage II. Triple negative. Did receive chemotherapy and getting immunotherapy. Follows with oncologist Dr. Jodee Galvan. Patient undergone bilateral mastectomy with right sentinel node biopsy. Has CHIDI drains in place. Significant pain. Very slight nausea. Did tolerate some light yogurt. Review of systems: GEN.: A bit tired. Pain over the operative site EYES: None HEENT: None NECK: None RESPIRATORY: None CARDIOVASCULAR: None GASTROINTESTINAL: Heartburn GENITOURINARY: None MUSCULOSKELETAL: None LYMPHATICS: None HEMATOLOGICAL: None PSYCHIATRY: None NEUROLOGICAL: None Social history: Lives with her boyfriend Servando. Smoked quarter pack a day since the age of 21 stopped in 2015. No alcohol history Physical examination: VITAL SIGNS: 98, 94, 16, 113 x 76, 98% room air GENERAL: BMI 35.2, reclining in bed. EYES: Pupils equal. Conjunctiva phil l. HEENT: External appearance of nose and ears normal, oral cavity grossly normal. NECK: JVD not raised; masses not palpable. HEART: First and second heart sounds are normal; no edema. LUNGS: Respiratory rate normal; clear to auscultation. ABDOMEN: Soft, nontender, liver spleen not palpable, no masses palpable. PSYCH: Alert and oriented x3; mood and affect phil l. MUSCULOSKELETAL:No Clubbing/cyanosis;muscles-grossly intact NEUROLOGICAL: Cranial nerves grossly intact; no facial asymmetry, power and se nsation grossly intact. LYMPHATICS: No lymph nodes palpable in the axilla and neck Chest wall: Postop bra in place. CHIDI drains. Tender. INVESTIGATIONS, reviewed in the clinical context: April 07, 2025: White count 13.7 hemoglobin 12 platelets 158 potassium 4.6 BUN 12.9 creatinine 0.8 Assessment plan: - Bilateral mastectomy with right sentinel node biopsy by Dr. Garret Sapp Pain controlled. CHIDI drain. - Leukocytosis, likely reactive from surgery. Patient denies any respiratory urinary symptoms - Moderate persistent asthma Trelegy inhaler. Singulair. - Anxiety not otherwise specified Xanax - Chronic pulmonary embolism Patient Eliquis has been on hold. Per surgery to be resumed tomorrow Care was discussed with patient. Questions answered. Thank you Dr. Garret Sapp Past Medical History Past Medical History: Asthma, Cancer, GERD/Reflux, Pulmonary Embolus (PE) Additional Past Medical History / Comment(s): Right breast cancer Stage 2, last chemo 03/04/25, no radiation, last immunotherapy(Keytruda) 03/26/25. Hx high heart rate. SEASONAL ALLERGIES. Hx right lung PE's 12/31/2024. History of Any Multi-Drug Resistant Organisms: None Reported Past Surgical History: Breast Surgery, Tubal Ligation Additional Past Surgical History / Comment(s): Port a catheter right chest, right breast biopsy. Past Anesthesia/Blood Transfusion Reactions: Postoperative Nausea & Vomiting (PONV) Additional Past Anesthesia/Blood Transfusion Reaction / Comm: Severe PONV, "patch behind ear in addition to antinausea medication helped". Mom slow to wake and low BP. Smoking Status: Former smoker - Past Family History Father Family Medical History: Deep Vein Thrombosis (DVT) Medications and Allergies Home Medications Medication Instructions Recorded Confirmed Type ALPRAZolam [Xanax] 0.5 mg PO BID 09/12/21 04/06/25 History Montelukast Sodium [Singulair] 10 mg PO HS 09/12/21 04/06/25 History Fluticasone/Umeclidin/Vilanter 1 puff INHALATION QAM 07/31/24 04/06/25 History [Trelegy Ellipta 200-62.5-25] Multivitamin [Multivitamins Adult 1 each PO DAILY 07/31/24 04/06/25 History Gummies] Metoprolol Succinate [Metoprolol 25 mg PO QAM 09/18/24 04/06/25 History Succinate ER] Apixaban [Eliquis] 5 mg PO BID 01/28/25 04/06/25 History Black Cohosh (Unknown Dose) 1 tab PO DAILY 04/01/25 04/06/25 History Cetirizine HCl [Zyrtec] 10 mg PO QAM 04/01/25 04/06/25 History Magnesium (Unknown Dose) 1 tab PO DAILY 04/01/25 04/06/25 History oxyCODONE HCL [OxyIR] 5 mg PO Q6H PRN 3 Days #14 tab 04/06/25 Rx Allergies Allergy/AdvReac Type Severity Reaction Status Date / Time bupropion [From Wellbutrin] Allergy Anaphylaxis Verified 04/01/25 13:17 carrot Allergy Anaphylaxis Verified 04/01/25 13:17 metoclopramide [From Reglan] Allergy Rash/Hives Verified 04/01/25 13:17 Physical Exam Vitals: Vital Signs Temp Pulse Pulse Resp BP BP Pulse Ox 04/07/25 08:56 98 F 94 16 113/76 04/07/25 04:49 68 16 117/79 98 04/06/25 20:49 66 16 104/66 04/06/25 20:19 71 16 118/83 99 04/06/25 19:49 65 16 113/79 100 04/06/25 19:34 68 15 108/77 100 04/06/25 19:19 81 18 114/81 99 04/06/25 19:04 97.7 F 72 18 113/80 04/06/25 18:32 82 16 119/76 94 L 04/06/25 18:17 62 16 117/72 92 L 04/06/25 18:03 78 16 122/84 92 L 04/06/25 17:48 88 14 111/66 99 04/06/25 17:33 98 14 129/65 97 04/06/25 17:18 98.2 F 107 H 16 139/69 99 04/06/25 12:20 78 18 109/72 98 04/06/25 12:11 72 16 115/80 99 04/06/25 12:00 74 16 118/83 97 04/06/25 11:06 107 H 18 111/71 96 Intake and Output 04/06/25 04/07/25 04/07/25 22:59 06:59 14:59 Intake Total 1200 Output Total 30 35 28 Balance 1170 -35 -28 Intake: IV 1200 Output: Drainage 35 28 Left Breast 30 8 Right Breast 5 20 Estimated Blood Loss 30 Other: # Voids 1 1 Results CBC & Chem 7: 04/07/25 06:15 Labs: Abnormal Lab Results - Last 24 Hours (Table) 04/07/25 Range/Units 06:15 WBC 13.71 H (4.50-10.00) 10*3/uL RBC 4.05 L (4.10-5.20) 10*6/uL Hct 35.0 L (37.2-46.3) % Immature Gran # 0.09 H (0.00-0.04) 10*3/uL Neutrophils # 10.99 H (1.80-7.70) 10*3/uL Monocytes # 1.28 H (0.20-1.00) 10*3/uL Eosinophils # 0.00 L (0.04-0.35) 10*3/uL
[2025-04-07] MEDS ORDERED: APIXABAN 5 MG TAB PO SCH (21:00)
[2025-04-07] MEDS: MONTELUKAST 10 MG TAB PO SCH (21:04)
[2025-04-08 02:53] VITALS: RESP 16
--- NOTE | 2025-04-08 07:50 | P.PN ---
Subjective Progress Note Date: 04/08/25 Principal diagnosis: Right breast invasive ductal carcinoma/postop day #2 right sentinel node biopsy bilateral skin-sparing mastectomy/bilateral prepectoral manager of compliance placement Patient is postop day #2 bilateral mastectomy/right sentinel node biopsy/prepectoral manager of compliance placement. Her pain is presently under control. She is tolerating diet without difficulty. CHIDI output is serous in nature bilaterally. Objective - Vital Signs Vital signs: Vital Signs Temp 97.3 F L 04/08/25 00:00 Pulse 79 04/08/25 00:00 Resp 16 04/08/25 00:00 BP 120/78 04/08/25 00:00 Pulse Ox 99 04/08/25 00:00 FiO2 Intake & Output 04/07/25 04/08/25 04/08/25 18:59 06:59 18:59 Output Total 55 60 Balance -55 -60 Output: Drainage 55 60 Left Breast 13 20 Right Breast 42 40 - Constitutional General appearance: Present: cooperative - EENT Eyes: Present: EOMI ENT: Present: hearing grossly normal - Respiratory Respiratory: bilateral: CTA - Cardiovascular Rhythm: regular Heart sounds: normal: S1, S2 - Integumentary Integumentary Comment(s): Incision clean and dry bilateral - Musculoskeletal Musculoskeletal: Present: gait normal - Psychiatric Psychiatric: Present: A&O x's 3, appropriate affect, intact judgment & insight - Labs CBC & Chem 7: 04/07/25 06:15 Labs: Abnormal Lab Results - Last 24 Hours (Table) 04/07/25 Range/Units 06:15 WBC 13.71 H (4.50-10.00) 10*3/uL RBC 4.05 L (4.10-5.20) 10*6/uL Hct 35.0 L (37.2-46.3) % Immature Gran # 0.09 H (0.00-0.04) 10*3/uL Neutrophils # 10.99 H (1.80-7.70) 10*3/uL Monocytes # 1.28 H (0.20-1.00) 10*3/uL Eosinophils # 0.00 L (0.04-0.35) 10*3/uL Assessment and Plan Assessment: Impression: Patient doing well postoperative Plan: Restart Eliquis Discharge patient home to be followed as an outpatient
--- NOTE | 2025-04-08 07:53 | P.DS ---
Providers Date of admission: 04/06/25 10:49 Expected date of discharge: 04/08/25 Attending physician: Toyin Orozco Consults: 04/06/25 16:01 Consult Physician Routine Consulting Provider: Fede Santo Consult Reason/Comments: medical managment Do you want consulting provider notified?: Yes Primary care physician: Rudy [facility] Course: The patient is status post bilateral simple mastectomy with a right sentinel node biopsy and bilateral prepectoral theater technician/implant reconstruction. She is doing well postoperatively. Plan - Discharge Summary Discharge Rx Participant: Yes New Discharge Prescriptions: New oxyCODONE HCL [OxyIR] 5 mg PO Q6H PRN 3 Days #14 tab PRN Reason: pain No Action Fluticasone/Umeclidin/Vilanter [Trelegy Ellipta 200-62.5-25] 1 puff INHALATION QAM Metoprolol Succinate [Metoprolol Succinate ER] 25 mg PO QAM Cetirizine HCl [Zyrtec] 10 mg PO QAM Montelukast Sodium [Singulair] 10 mg PO HS ALPRAZolam [Xanax] 0.5 mg PO BID Multivitamin [Multivitamins Adult Gummies] 1 each PO DAILY Apixaban [Eliquis] 5 mg PO BID Black Cohosh (Unknown Dose) 1 tab PO DAILY Magnesium (Unknown Dose) 1 tab PO DAILY Discharge Medication List ALPRAZolam [Xanax] 0.5 mg PO BID 09/12/21 [History] Montelukast Sodium [Singulair] 10 mg PO HS 09/12/21 [History] Fluticasone/Umeclidin/Vilanter [Trelegy Ellipta 200-62.5-25] 1 puff INHALATION QAM 07/31/24 [History] Multivitamin [Multivitamins Adult Gummies] 1 each PO DAILY 07/31/24 [History] Metoprolol Succinate [Metoprolol Succinate ER] 25 mg PO QAM 09/18/24 [History] Apixaban [Eliquis] 5 mg PO BID 01/28/25 [History] Black Cohosh (Unknown Dose) 1 tab PO DAILY 04/01/25 [History] Cetirizine HCl [Zyrtec] 10 mg PO QAM 04/01/25 [History] Magnesium (Unknown Dose) 1 tab PO DAILY 04/01/25 [History] oxyCODONE HCL [OxyIR] 5 mg PO Q6H PRN 3 Days #14 tab 04/06/25 [Rx] Follow up Appointment(s)/Referral(s): Toyin Orozco MD [STAFF PHYSICIAN] - 1 Week Lucian Dunbar MD [STAFF PHYSICIAN] - 1-2 Days Activity/Diet/Wound Care/Special Instructions: Patient may shower after 48 hours Teach drain care Do not drive if taking narcotic pain medicine Discharge Disposition: HOME SELF-CARE
[2025-04-08] MEDS: APIXABAN 5 MG TAB PO SCH (08:02)
[2025-04-08 09:22] VITALS: BP 105/62; PULSE 86; TEMP 98
== END 2025-04-08 10:20 | disposition home or self-care (01) | DRG 581 ==
LOC: OR 10:48 → 4FBP 10:49 → OR 10:49 → 4FBP 17:23
PROVIDERS: ADMIT Surgery; ATTEND Surgery
PROC: 0HRV0JZ Replacement of Bilateral Breast with Synthetic Substitute, Open Approach (ICD-10-PCS; 2025-04-06)
PROC: 0HHV0NZ Insertion of Tissue Expander into Bilateral Breast, Open Approach (ICD-10-PCS; 2025-04-06)
PROC: 3E0T3BZ Introduction of Anesthetic Agent into Peripheral Nerves and Plexi, Percutaneous Approach (ICD-10-PCS; 2025-04-06)
PROC: 07B80ZX Excision of Right Internal Mammary Lymphatic, Open Approach, Diagnostic (ICD-10-PCS; principal; 2025-04-06 12:40)
PROC: 0HTV0ZZ Resection of Bilateral Breast, Open Approach (ICD-10-PCS; 2025-04-06 12:40)
DX: C50.411 Malignant neoplasm of upper-outer quadrant of right female breast (principal); J45.909 Unspecified asthma, uncomplicated; Z17.421 Hormone receptor negative with human epidermal growth factor receptor 2 negative status; Z90.13 Acquired absence of bilateral breasts and nipples; Z86.711 Personal history of pulmonary embolism; Z87.891 Personal history of nicotine dependence; Z92.21 Personal history of antineoplastic chemotherapy; Z79.899 Other long term (current) drug therapy; Z79.01 Long term (current) use of anticoagulants; Z79.51 Long term (current) use of inhaled steroids
CPT/HCPCS: 38792; 64466; 81025; 85025; 88307; 88342

== ENCOUNTER → 2025-04-15 | Outpatient (CLI) | payer BC ==
[2025-04-15 09:13] VITALS: BP 101/72; PULSE 101; RESP 16; TEMP 97.9
--- NOTE | 2025-04-15 09:17 | P.BCPO ---
Progress Note - Text Progress Note Date: 04/15/25 Edie is status post bilateral mastecomty with right SNB and immediate prepectoral messenger floorperson placement on 04-06-25. Pathology revealed status post neoadjuvant changes in the right breast, no tumor fibrocystic disease in the left breast. SNB (-) for mets. post op Lungs: Clear Heart: Regular rate and rhythm Incision right breast and axilla clean and dry, incision left breast clean and dry CHIDI drains less than 30 cc for 2 days in a row bilateral Impression: Patient doing well postoperative Plan: DC CHIDI drains Follow-up plastic surgery Follow-up medical oncology Follow-up here in 4 months CC: Dr. Lockett Post Op Education - Post Op Education Post Op Education Provided Date: 04/15/25 - Functional Assessment Performed?: Yes (arm abduction passed) Path Report - Was patient given path report? Path Report Date Given: 04/15/25
== END ==
LOC: WWCWWP 08:59
PROVIDERS: ATTEND Surgery
DX: Z48.89 Encounter for other specified surgical aftercare (principal); F17.200 Nicotine dependence, unspecified, uncomplicated; Z90.11 Acquired absence of right breast and nipple; Z90.12 Acquired absence of left breast and nipple; Z88.8 Allergy status to other drugs, medicaments and biological substances; Z91.018 Allergy to other foods